=== PATIENT | male | born 2000 | race Caucasian/White ===

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

== ENCOUNTER 2019-03-20 21:05 | Emergency (ER) | payer MEDICAID, SELFPAY ==
[2019-03-20 21:06] VITALS: BP 146/105; PULSE 154; RESP 18; TEMP 35.5; O2SAT 100; BMI 22.9
[2019-03-20 21:15] VITALS: BP 146/77; PULSE 138; RESP 24; O2SAT 100
[2019-03-20] MEDS: Ziprasidone IM 20 MG/ML VIAL IM (21:17)
--- NOTE | 2019-03-20 21:20 | ED.RN ---
Pt yanking on restraints, screaming, spitting, banging head on side rails. PD at bedside. Spit mask in place. Seizure pads placed for safety. verbal de-escalation attempted.
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
[2019-03-20 21:59] LABS: Bacteria 0 SEEN /hpf (None Seen); Mucous, Urine 0 SEEN /hpf (<or=2+); Squamous Epithelial Cells - UA 0 SEEN /hpf (0-5)
[2019-03-20 22:06] VITALS: BP 136/83; PULSE 116; RESP 10; O2SAT 98
[2019-03-20 22:08] LABS: Color, Urine Yellow (Yellow); Glucose, Dipstick Normal (Normal); Ketone-Dipstick Negative (Negative); Leukocyte Esterase-Dipstick Negative /ul (Negative); Nitrite-Dipstick Negative (Negative); Occult Blood-Urine 25 /ul (Negative); Protein-Dipstick 30 mg/dl (Negative); Urine Bilirubin Dipstick Negative (Negative); Urine Clarity Clear (Clear); Urine Urobilinogen Normal (Normal)
[2019-03-20 22:10] LABS: AST(SGOT) 28 U/L (15-37); Alanine Aminotransfer ALT/SGPT 25 U/L (16-61); Albumin, Serum 4.7 g/dL (3.2-5.0); Alkaline Phosphatase 119 U/L (45-117); Anion Gap 10 (5-15); BUN 15 mg/dL (7-18); BUN/Creat Ratio 11.2 RATIO (10-20); Bilirubin, Direct 0.22 mg/dL (0.00-0.30); Calcium,Total 9.3 mg/dL (8.5-10.1); Chloride 111 mmol/L (98-107); Creatinine, Serum 1.34 mg/dL (0.70-1.30); EST Glomerular Filtration Rate 73 mL/min (>60); Est Glom Filt Rate - Afr Amer 88 mL/min (>60); Estimated Creatinine Clearance 91.02 ml/min; Globulin 3.2 g/dL (2.2-4.2); Glucose 179 mg/dL (74-106); Potassium 3.2 mmol/L (3.5-5.1); Protein, Total 7.9 g/dL (6.4-8.2); Sodium Level 142 mmol/L (136-145)
[2019-03-20 22:14] LABS: Alcohol, Blood (Medical)-Serum < 3.0 mg/dL
[2019-03-20 22:17] LABS: Absolute Neutrophil Count 8.8 X10^3/uL (2.0-7.7); Basophil# 0.01 X10^3/uL; Basophil% 0.1 % (0-1); Eosinophil# 0.11 X10^3/uL; Eosinophils% 0.9 % (0-5); Hematocrit 39.3 % (40-54); Lymphocyte % 15.9 % (19-41); Mean Corpuscular Volume 89.7 fL (80-94); Mean Platelet Vol. 10.1 fl (6.2-12.0); Monocyte# 1.14 X10^3/uL; Monocyte% 9.5 % (0-10); Neutrophil # 8.78 X10^3/uL (2.7-7.7); Neutrophil % 73.4 % (47-70); Platelet Count 228 K/mm3 (150-450); RBC Distribution Width CV 12.6 % (11.6-14.6); RBC Distribution Width SD 40.8 fl (35.1-43.9); Red Blood Count 4.38 M/mm3 (4.6-6.2)
--- NOTE | 2019-03-20 22:26 | ED.RN ---
Pt awake and talking sensible. Pt doesn't remember what drugs he took today, states he has smoked fake weed before and this happened admits to heroin a month ago. Last thing pt remembers is throwing furniture and fighting with patients. Pt still pulling on restraints and yelling let me out. Pt still spitting. Pt states he wants admired to a psych lopez for a long time Denies SI. Will continue to assess need for restraints.
[2019-03-20 22:28] LABS: Mean Corp Hgb Conc 35.6 g/gl (32-36)
[2019-03-20 22:29] LABS: POSITIVE COUNT NO; POSITIVE DIFFERENTIAL NO; POSITIVE MORPHOLOGY NO
[2019-03-20 22:30] LABS: Amphetamine Urine VISTA NEGATIVE (<1000 ng/mL); Barbiturate Urine VISTA NEGATIVE (< 200 ng/mL); Benzodiazepine Urine VISTA NEGATIVE (< 200 ng/mL); Cocaine Urine VISTA NEGATIVE (< 300 ng/mL); Ecstacy Urine VISTA NEGATIVE (< 500 ng/mL); Methadone Urine VISTA NEGATIVE (< 300 ng/mL); PCP Urine VISTA NEGATIVE (< 25 ng/mL); THC Urine VISTA NEGATIVE (< 50 ng/mL); Vista UDS pH Range 5
[2019-03-20 22:32] LABS: Red Blood Cells-Urine 0-5 SEEN /hpf (0-5); Transitional Epithelial - Ur 0-5 SEEN /hpf (0-5)
[2019-03-20 22:33] LABS: White Blood Cells 0-5 SEEN /hpf (0-5)
--- NOTE | 2019-03-20 22:37 | ED.RN ---
Pt admits to auditory hallucinations. States they tell him to not take his medications. Continues to deny SI. States something is wrong with me im messed up
--- NOTE | 2019-03-20 22:41 | ED.RN ---
Pt keeps saying he has demons inside him and and living in his house Now states he did smoked meth today.
--- NOTE | 2019-03-20 22:49 | ED.RN ---
Pt states he was trying to kill himself today, pt verbalizes wanting to . Pt states he snorted shit to kill myself Dr Felipe notified. Suicide precautions initiated.
--- NOTE | 2019-03-20 22:50 | ED.RN ---
Pt meets criteria for restraint removal. pt verbalizes wanting to cooperate. Pt explained the the mental health process. Crisis called. Restraints removed and patient taken off cardiac monitoring.
[2019-03-20 23:00] VITALS: RESP 16
--- NOTE | 2019-03-20 23:03 | ED.RN ---
I CALLED KRISTY FROM CRISIS AND NOTIFIED HER THAT THIS PT IS READY TO BE EVALUATED BY CRISIS. SHE STATED SHE IS ON HER WAY NOW.
[2019-03-21] VITALS (12 sets, daily range): BP systolic 110–129; BP diastolic 67–78; PULSE 70–91; RESP 13–18; TEMP 36.9; O2SAT 98–99
[2019-03-21] MEDS: Ondansetron ODT 4 MG Tablet PO (00:19)
--- NOTE | 2019-03-21 03:05 | ED.RN ---
PER FAMILY, PT IS OFF ALL MEDICATION.
== END 2019-03-21 12:15 ==
PROVIDERS: Emergency Provider Emergency Medicine; Family Provider Pediatrics; PCP Pediatrics
DX: F29 Unspecified psychosis not due to a substance or known physiological condition (principal); R45.851 Suicidal ideations; F20.9 Schizophrenia, unspecified; F31.9 Bipolar disorder, unspecified; F12.90 Cannabis use, unspecified, uncomplicated; Z78.1 Physical restraint status
CPT/HCPCS: 80048; 80076; 80307; 80320; 81001; 85025; 96372; 99285; G0480; J3486

== ENCOUNTER 2019-12-27 01:40 | Emergency (ER) | payer MEDICAID, SELFPAY ==
[2019-12-27] VITALS (9 sets, daily range): BP systolic 113–155; BP diastolic 67–101; PULSE 61–90; RESP 14–18; TEMP 36.6–36.9; O2SAT 97–99; BMI 21.9
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
[2019-12-27 02:09] LABS: Absolute Lymphocyte Count 3.43 X10^3/uL (0.83-4.51); Absolute Neutrophil Count 6.4 X10^3/uL (2.0-7.7); Basophil# 0.03 X10^3/uL; Basophil% 0.3 % (0-1); Eosinophil# 0.52 X10^3/uL; Eosinophils% 4.5 % (0-5); Hematocrit 40.1 % (40-54); Hemoglobin 14.6 g/dL (13.0-16.5); Lymphocyte # 3.43 X10^3/ul (4.0); Mean Corp Hgb Conc 36.4 g/dL (32-36); Mean Corpuscular Hgb 32.8 pg (27.0-32.0); Mean Corpuscular Volume 90.1 fL (80-94); Mean Platelet Vol. 9.9 fl (6.2-12.0); Monocyte# 1.08 X10^3/uL; Monocyte% 9.4 % (0-10); NRBC Flagged by Analyzer 0 % (0-5); Neutrophil # 6.35 X10^3/uL (2.7-7.7); Neutrophil % 55.5 % (47-70); Platelet Count 222 K/mm3 (150-450); RBC Distribution Width CV 11.9 % (11.6-14.6); RBC Distribution Width SD 38.2 fl (35.1-43.9); Red Blood Count 4.45 M/mm3 (4.6-6.2); White Blood Count 11.5 K/mm3 (4.4-11.0)
[2019-12-27 02:19] LABS: Anion Gap 8 (5-15); BUN 23 mg/dL (7-18); BUN/Creat Ratio 24.7 RATIO (10-20); Chloride 108 mmol/L (98-107); Creatinine, Serum 0.93 mg/dL (0.70-1.30); EST Glomerular Filtration Rate 110 mL/min (>60); Est Glom Filt Rate - Afr Amer 133 mL/min (>60); Estimated Creatinine Clearance 127.78 ml/min; Glucose 99 mg/dL (74-106); Potassium 3.7 mmol/L (3.5-5.1); Sodium Level 138 mmol/L (136-145)
[2019-12-27 02:36] LABS: Alcohol, Blood (Medical)-Serum < 3.0 mg/dL
[2019-12-27 02:39] LABS: Amphetamine Urine VISTA NEGATIVE (<1000 ng/mL); Barbiturate Urine VISTA NEGATIVE (< 200 ng/mL); Benzodiazepine Urine VISTA NEGATIVE (< 200 ng/mL); Cocaine Urine VISTA NEGATIVE (< 300 ng/mL); Ecstacy Urine VISTA NEGATIVE (< 500 ng/mL); Methadone Urine VISTA NEGATIVE (< 300 ng/mL); PCP Urine VISTA NEGATIVE (< 25 ng/mL); THC Urine VISTA POSITIVE (< 50 ng/mL); Vista UDS pH Range 5
--- NOTE | 2019-12-27 03:30 | ED.RN ---
PATIENT'S MOM CAME TO INTO CHECK ON THE PATIENT. SHE WAS ASKING A LOT OF QUESTIONS ABOUT HIS MARIJUANA USE AND HE WAS GETTING FRUSTRATED. SHE WAS VERY CONCERNED, AND WANTED TO KNOW WHERE HE WAS GOING AND WANTED HIM TO CALL BEFORE HE LEFT. SHE DIDN'T STAY LONG AND SHE TOOK HIS CAR TROY AND IPOD WITH HER.
== END 2019-12-27 15:24 ==
PROVIDERS: Emergency Provider Emergency Medicine; PCP Pediatrics
DX: R45.851 Suicidal ideations (principal); F17.200 Nicotine dependence, unspecified, uncomplicated; Z91.5 Personal history of self-harm
CPT/HCPCS: 80048; 80307; 80320; 85025; 99284; G0480

== ENCOUNTER 2020-02-18 00:14 | Emergency (ER) | payer MEDICAID, SELFPAY ==
[2019-12-27 01:42] VITALS: BMI 21.9
[2020-02-18 00:16] VITALS: BP 125/83; PULSE 64; RESP 15; TEMP 36.8; O2SAT 99; BMI 23.0
--- NOTE | 2020-02-18 00:24 | ED.VISSUMM ---
- ER Visit Summary Date of Service: 02/18/20 Chief Complaint: Hallucinations to kill himself History of Present Illness: The patient is a 19 M history of bipolar disorder. Currently on no medications. Patient was recently admitted to [facility] psychiatry at the end of December beginning of December for approximately a week. He states the last week he has had recurrent voices almost continuously telling him that he needs to end it. He denies any actual attempt. He denies any overdose or specific plan. He is concerned that he will not be able to stop the voices. Physical Examination: Young male no acute distress vital signs are stable and afebrile. H EENT exam unremarkable. No trauma. Neck nontender. No signs of trauma. Lungs clear to auscultation. Heart regular rhythm rate about 90 no murmur. Abdomen is soft nontender normal bowel sounds no peritoneal signs. Patient is moving all 4 extremities. No signs of trauma. No cutting. No track payne. Back nontender. Skin unremarkable. Neurologically is awake and alert with no focal motor deficits. Currently he is calm and cooperative. There is no smell of alcohol or signs of toxidrome. Test Results: [] Emergency Department Course and Treatment: Patient will undergo ED mental health labs. He is medically cleared. I have already spoken to crisis who is working on placement. Treatment Plan: Transfer to a psychiatric facility once acceptance is obtained. Disposition: Transfer to psychiatric facility Impression: Suicidal ideation with command hallucinations History of bipolar disorder This note was generated with [employer] dictation software. It may contain incorrect words, spelling, and punctuation that were not noted in review of the chart prior to signing ED Disposition - Plan for ED Patient: Referrals: Pal Menon MD [Primary Care Provider] -
[2020-02-18 00:39] LABS: Absolute Lymphocyte Count 4.19 X10^3/uL (0.83-4.51); Basophil# 0.04 X10^3/uL; Basophil% 0.4 % (0-1); Eosinophil# 0.26 X10^3/uL; Eosinophils% 2.8 % (0-5); Hematocrit 43.8 % (40-54); Hemoglobin 15.8 g/dL (13.0-16.5); Lymphocyte # 4.19 X10^3/ul (4.0); Lymphocyte % 45.9 % (19-41); Mean Corp Hgb Conc 36.1 g/dL (32-36); Mean Corpuscular Hgb 32.6 pg (27.0-32.0); Mean Corpuscular Volume 90.3 fL (80-94); Mean Platelet Vol. 9.9 fl (6.2-12.0); Monocyte# 0.67 X10^3/uL; Monocyte% 7.3 % (0-10); NRBC Flagged by Analyzer 0 % (0-5); Neutrophil # 3.95 X10^3/uL (2.7-7.7); Neutrophil % 43.4 % (47-70); Platelet Count 229 K/mm3 (150-450); RBC Distribution Width CV 11.6 % (11.6-14.6); RBC Distribution Width SD 37.5 fl (35.1-43.9); Red Blood Count 4.85 M/mm3 (4.6-6.2); White Blood Count 9.1 K/mm3 (4.4-11.0)
[2020-02-18 00:55] LABS: Anion Gap 6 (5-15); BUN 30 mg/dL (7-18); BUN/Creat Ratio 31.2 RATIO (10-20); Calcium,Total 9.5 mg/dL (8.5-10.1); Chloride 106 mmol/L (98-107); Creatinine, Serum 0.96 mg/dL (0.70-1.30); EST Glomerular Filtration Rate 105 mL/min (>60); Est Glom Filt Rate - Afr Amer 128 mL/min (>60); Estimated Creatinine Clearance 133.87 ml/min; Glucose 90 mg/dL (74-106); Potassium 3.8 mmol/L (3.5-5.1); Sodium Level 138 mmol/L (136-145)
[2020-02-18 01:15] VITALS: RESP 15
[2020-02-18 01:55] LABS: Amphetamine Urine VISTA NEGATIVE (<1000 ng/mL); Barbiturate Urine VISTA NEGATIVE (< 200 ng/mL); Benzodiazepine Urine VISTA NEGATIVE (< 200 ng/mL); Cocaine Urine VISTA NEGATIVE (< 300 ng/mL); Ecstacy Urine VISTA NEGATIVE (< 500 ng/mL); Methadone Urine VISTA NEGATIVE (< 300 ng/mL); PCP Urine VISTA NEGATIVE (< 25 ng/mL); THC Urine VISTA NEGATIVE (< 50 ng/mL); Vista UDS pH Range 5
[2020-02-18 02:01] LABS: Alcohol, Blood (Medical)-Serum < 3.0 mg/dL
--- NOTE | 2020-02-18 03:42 | ED.RN ---
[facility] WILL BE HERE TO TRANSPORT AROUND 0800
[2020-02-18 04:00] VITALS: BP 97/64; PULSE 59; RESP 15; TEMP 36.6; O2SAT 95
[2020-02-18 06:00] VITALS: RESP 15
[2020-02-18 06:02] VITALS: BP 97/64; PULSE 59; RESP 15; TEMP 36.6; O2SAT 95
[2020-02-18 07:00] VITALS: RESP 16
== END 2020-02-18 08:20 ==
LOC: ED 00:37
PROVIDERS: Emergency Provider Emergency Medicine; PCP Pediatrics
DX: R44.3 Hallucinations, unspecified (principal); F31.9 Bipolar disorder, unspecified; R45.851 Suicidal ideations
CPT/HCPCS: 80048; 80307; 80320; 85025; 99283; G0480

== ENCOUNTER 2020-11-16 21:47 | Emergency (ER) | payer MEDICAID, SELFPAY ==
[2020-11-16 21:49] VITALS: BP 141/91; PULSE 101; RESP 15; TEMP 36.8; O2SAT 97; BMI 20.9
--- NOTE | 2020-11-16 22:02 | EKG12_ITS ---
Test Reason : [facility] [place] Blood Pressure : / mmHG Vent. Rate : 088 BPM Atrial Rate : 088 BPM P-R Int : 174 ms QRS Dur : 100 ms QT Int : 372 ms P-R-T Axes : 064 085 060 degrees QTc Int : 450 ms Normal sinus rhythm Normal ECG Confirmed by MELVIN DELATORRE MD ([id number]), television news video editor FRANCIA DIEGO ([id number]) on 11/19/2020 6:58:35 AM Referred By: KELLY Confirmed By:MELVIN DELATORRE MD
[2020-11-16] MEDS: LORazepam 1 MG Tablet PO (22:27)
[2020-11-16] MEDS: Haloperidol 5 MG Tablet PO (22:28)
[2020-11-16 22:32] LABS: Absolute Neutrophil Count 7.2 X10^3/uL (2.0-7.7); Basophil# 0.05 X10^3/uL; Basophil% 0.5 % (0-1); Eosinophil# 0.22 X10^3/uL; Hematocrit 41.8 % (40-54); Hemoglobin 15.2 g/dL (13.0-16.5); Lymphocyte % 25.5 % (19-41); Mean Corp Hgb Conc 36.4 g/dL (32-36); Mean Corpuscular Hgb 32.2 pg (27.0-32.0); Mean Corpuscular Volume 88.6 fL (80-94); Mean Platelet Vol. 9.7 fl (6.2-12.0); Monocyte# 0.65 X10^3/uL; Monocyte% 5.9 % (0-10); NRBC Flagged by Analyzer 0 % (0-5); Neutrophil % 65.6 % (47-70); Platelet Count 242 K/mm3 (150-450); RBC Distribution Width CV 11.5 % (11.6-14.6); RBC Distribution Width SD 36.7 fl (35.1-43.9); Red Blood Count 4.72 M/mm3 (4.6-6.2)
[2020-11-16 22:46] LABS: Anion Gap 9 (5-15); BUN 17 mg/dL (7-18); BUN/Creat Ratio 21.5 RATIO (10-20); Chloride 106 mmol/L (98-107); Creatinine, Serum 0.79 mg/dL (0.70-1.30); EST Glomerular Filtration Rate 131 mL/min (>60); Est Glom Filt Rate - Afr Amer 159 mL/min (>60); Estimated Creatinine Clearance 147.09 ml/min; Glucose 72 mg/dL (74-106); Potassium 3.5 mmol/L (3.5-5.1); Sodium Level 138 mmol/L (136-145)
--- NOTE | 2020-11-16 22:47 | ED.DCSUM_ITS ---
History of Present Illness Chief Complaint: Mental Health Informant: Patient Onset: Days, Weeks Context: Gradual Onset Timing: Continuous Current Severity: Moderate Maximum Severity: Moderate Narrative: The patient is a 20-year-old male medical history significant for bipolar disorder who has been noncompliant with his medications. The patient presents with increasing auditory hallucinations. He states for the past week, he has had multiple voices that have been speaking to him. He states that he has begun to have thoughts of harming others. He states because of the voices, he has had thoughts of harming himself. He does not have any specific plan. He states that he has had attempt in the past. He states he walked into traffic, but states he was just trying to prove a point and did not feel like he was suicidal. Patient has not been taking medications for 3 months. Prior similar symptoms: Yes Recent Illness/Hospitalization: No Past Medical History - Allergies and Home Meds Allergies/Adverse Reactions: Allergies No Known Allergies Allergy (Verified 11/16/20 21:55) Primary Care Physician: Care Physician,No Primary [Primary Care Provider] - Prior records reviewed: Yes Past Medical History: - - Bipolar disorder Surgical History: noncontributory Smoking Status: Current every day smoker Review of Systems General: Denies: Chills, Fever, Sweats Eyes: Denies: Visual changes - bilaterally, Diplopia ENT: Denies: Rhinorrhea, Sore throat Cardiovascular: Denies: Chest pain, Palpitations Respiratory: Denies: Dyspnea, Cough, Dyspnea on exertion Gastrointestinal: Denies: Abdominal pain, Nausea, Vomiting, Diarrhea, Melena, Hematochezia Genitourinary: Denies: Dysuria, Hematuria, Frequency Musculoskeletal: Denies: Back pain, Extremity Pain Skin: Denies: Rash, Wounds Neurological: Denies: Headache, Weakness, Numbness Psych: Reports: Anxiety, Suicidal thoughts Physical Exam Vital Signs/Narrative: Vital Signs Temp Pulse Resp BP Pulse Ox 11/16/20 21:49 98.3 F 101 H 15 141/91 H 97 Inital Vital Signs reviewed: Yes General: Well nourished, Well developed, No Acute Distress Head: Normocephalic, Atraumatic Eyes: Perrl, EOMI ENT: Moist mucous membranes, No rhinorrhea Neck: Supple, Nontender Cardiovascular: Regular rate, Regular rhythm, No murmurs Respiratory: No distress, CTA bilaterally, Chest nontender Abdomen: Soft, Nontender, Nondistended, Normal bowel sounds Back: Nontender, Normal Inspection Extremities: Nontender, No edema Skin: Normal color, No rash Neurological: Alert, Oriented x3, Cranial nerves II-XII grossly intact, Normal Strength, Normal Sensation Psychological: Normal affect, Normal Mood Diagnostic/Tx/Re-eval Abnormal Lab Results 11/16/20 11/16/20 11/16/20 22:14 22:14 22:14 WBC 11.0 RBC 4.72 Hgb 15.2 Hct 41.8 MCV 88.6 MCH 32.2 H MCHC 36.4 H RDW Std Deviation 36.7 RDW Coeff of Darvin 11.5 L Plt Count 242 MPV 9.7 Immature Gran % (Auto) 0.500 Neut % (Auto) 65.6 Lymph % (Auto) 25.5 Alcorn % (Auto) 5.9 Eos % (Auto) 2.0 Baso % (Auto) 0.5 Absolute Neuts (auto) 7.2 Absolute Lymphs (auto) 2.80 Nucleated RBC % 0 Sodium 138 Potassium 3.5 Chloride 106 Carbon Dioxide 23.0 Anion Gap 9 BUN 17 Creatinine 0.79 Estim Creat Clear Calc 147.09 Est GFR (MDRD) Af Amer 159 Est GFR (MDRD) Non-Af 131 BUN/Creatinine Ratio 21.5 H Glucose 72 L Calcium 9.0 Urine Opiates Screen Urine Methadone Screen Ur Barbiturates Screen Ur Phencyclidine Scrn Ur Amphetamines Screen U Methamphetamin-MDMA U Benzodiazepines Scrn Urine Cocaine Screen U Cannabinoids Screen Ur Drug Screen Comment Ethyl Alcohol 15.0 11/16/20 22:14 WBC RBC Hgb Hct MCV MCH MCHC RDW Std Deviation RDW Coeff of Darvin Plt Count MPV Immature Gran % (Auto) Neut % (Auto) Lymph % (Auto) Alcorn % (Auto) Eos % (Auto) Baso % (Auto) Absolute Neuts (auto) Absolute Lymphs (auto) Nucleated RBC % Sodium Potassium Chloride Carbon Dioxide Anion Gap BUN Creatinine Estim Creat Clear Calc Est GFR (MDRD) Af Amer Est GFR (MDRD) Non-Af BUN/Creatinine Ratio Glucose Calcium Urine Opiates Screen NEGATIVE Urine Methadone Screen NEGATIVE Ur Barbiturates Screen NEGATIVE Ur Phencyclidine Scrn NEGATIVE Ur Amphetamines Screen NEGATIVE U Methamphetamin-MDMA NEGATIVE U Benzodiazepines Scrn NEGATIVE Urine Cocaine Screen NEGATIVE U Cannabinoids Screen NEGATIVE Ur Drug Screen Comment Ethyl Alcohol - Medical Decision Making The patient presents with increasing hallucinations, paranoid ideation, t ransient thoughts of self-harm, and thoughts of hurting others. He has been noncompliant with all of his medications. He was given oral Ativan and Haldol. Metabolic work-up was pursued. EKG was unremarkable. Labs are unremarkable. At this time, the patient is medically cleared. He will be evaluated by crisis counseling service. After 8-hour observation, the patient was evaluated by crisis when he was more awake and alert. At this point, he is not voicing any thoughts of self-harm or harm to others. He feels safe at home. We also discussed his care with his mother who thought that he did not need any inpatient psychiatric treatment at this time. At this point, the patient will be discharged with outpatient follow-up. Impression 1. Paranoia ED Disposition - Plan for ED Patient: Instructions: ED Bipolar Disorder Referrals: Counseling,Center [GROUP OF PHYSICIANS] -
[2020-11-16 22:59] LABS: Amphetamine Urine VISTA NEGATIVE (<1000 ng/mL); Barbiturate Urine VISTA NEGATIVE (< 200 ng/mL); Benzodiazepine Urine VISTA NEGATIVE (< 200 ng/mL); Cocaine Urine VISTA NEGATIVE (< 300 ng/mL); Ecstacy Urine VISTA NEGATIVE (< 500 ng/mL); Methadone Urine VISTA NEGATIVE (< 300 ng/mL); PCP Urine VISTA NEGATIVE (< 25 ng/mL); THC Urine VISTA NEGATIVE (< 50 ng/mL); Vista UDS pH Range 6
[2020-11-16 23:20] VITALS: RESP 16
--- NOTE | 2020-11-16 23:56 | NURSING ---
CALLED CRISIS AT [phone]
[2020-11-17 00:02] VITALS: RESP 16
[2020-11-17 01:00] VITALS: RESP 16
--- NOTE | 2020-11-17 01:05 | ED.RN ---
crisis called and requested to speak with pt. pt sleeping w/eyes closed and did not wake up. respirations even and unlabored. several attempts to awaken pt unsuccessful. crisis requested [facility] to contact them when pt wakes up.
[2020-11-17 01:20] VITALS: BP 109/54; PULSE 73; RESP 16; O2SAT 96
[2020-11-17 02:00] VITALS: RESP 16
[2020-11-17 03:00] VITALS: RESP 15
[2020-11-17 06:16] VITALS: BP 120/75; PULSE 81; RESP 17; O2SAT 99
== END 2020-11-17 06:17 | disposition home or self-care (01) ==
LOC: ED 23:19
PROVIDERS: Emergency Provider Emergency Medicine
DX: F22 Delusional disorders (principal); F31.9 Bipolar disorder, unspecified; Z91.14 Patient's other noncompliance with medication regimen; R45.851 Suicidal ideations; F41.9 Anxiety disorder, unspecified; F17.200 Nicotine dependence, unspecified, uncomplicated
CPT/HCPCS: 80048; 80307; 82077; 85025; 87426; 93005; 99284

== ENCOUNTER 2021-01-15 22:06 | Emergency (ER) | payer MEDICAID, SELFPAY ==
[2021-01-15 22:07] VITALS: BP 148/80; PULSE 92; RESP 18; TEMP 35.9; O2SAT 98; BMI 23.0
--- NOTE | 2021-01-15 22:19 | EKG12_ITS ---
Test Reason : [facility] [place] Blood Pressure : / mmHG Vent. Rate : 090 BPM Atrial Rate : 090 BPM P-R Int : 170 ms QRS Dur : 096 ms QT Int : 340 ms P-R-T Axes : 059 083 057 degrees QTc Int : 415 ms Normal sinus rhythm with sinus arrhythmia Normal ECG Confirmed by JUAN RAMON GREEN, MELVIN ([id number]), purchasing expeditor DESIRE PHILIPPE ([id number]) on 01/19/2021 10:30:16 AM Referred By: CL Confirmed By:MELVIN DELATORRE MD
--- NOTE | 2021-01-15 22:24 | ED.VIS.GEN ---
History of Present Illness Chief Complaint: Suicidal Informant: Patient Onset: Days Context: Gradual Onset Timing: Intermittent Current Severity: Moderate Maximum Severity: Severe Narrative: The patient is a 20-year-old male with history of bipolar disorder who presents to the emergency department requesting psychiatric evaluation. The patient states that he is noncompliant with his medications. He states for the past month, he has been having increasing auditory hallucinations. He states there is multiple voices that are talking to him. He states he stopped taking his meds because they do not work. He states the other night, he did have a dream about killing himself, but states he has no plan of harming himself. He does admit to being increasingly paranoid. He states that he feels like people are out to get him. He states he does not feel like he is safe. Prior similar symptoms: Yes Recent Illness/Hospitalization: No Past Medical History - Allergies and Home Meds Allergies/Adverse Reactions: Allergies No Known Allergies Allergy (Verified 01/15/21 22:11) Primary Care Physician: Care Physician,No Primary [NON-STAFF] - Prior records reviewed: Yes Past Medical History: - - Bipolar disorder Surgical History: noncontributory Smoking Status: Current every day smoker Review of Systems General: Denies: Chills, Fever, Sweats Eyes: Denies: Visual changes - bilaterally, Diplopia ENT: Denies: Rhinorrhea, Sore throat Cardiovascular: Denies: Chest pain, Palpitations Respiratory: Denies: Dyspnea, Cough, Dyspnea on exertion Gastrointestinal: Denies: Abdominal pain, Nausea, Vomiting, Diarrhea, Melena, Hematochezia Genitourinary: Denies: Dysuria, Hematuria, Frequency Musculoskeletal: Denies: Back pain, Extremity Pain Skin: Denies: Rash, Wounds Neurological: Denies: Headache, Weakness, Numbness Psych: Reports: Depression, Anxiety Physical Exam Vital Signs/Narrative: Vital Signs Temp Pulse Resp BP Pulse Ox 01/15/21 22:07 96.7 F L 92 18 148/80 H 98 Inital Vital Signs reviewed: Yes General: Well nourished, Well developed, No Acute Distress Head: Normocephalic, Atraumatic Eyes: Perrl, EOMI ENT: Moist mucous membranes, No rhinorrhea Neck: Supple, Nontender Cardiovascular: Regular rate, Regular rhythm, No murmurs Respiratory: No distress, CTA bilaterally, Chest nontender Abdomen: Soft, Nontender, Nondistended, Normal bowel sounds Back: Nontender, Normal Inspection Extremities: Nontender, No edema Skin: Normal color, No rash Neurological: Alert, Oriented x3, Cranial nerves II-XII grossly intact, Normal Strength, Normal Sensation Psychological: Normal affect, Normal Mood Diagnostic/Tx/Re-eval - Medical Decision Making The patient presents with increasing paranoia. He had a dream about suicide, but states is not actively suicidal. He does feel unsafe. Patient will undergo metabolic work-up and be evaluated by crisis. Impression 1. Bipolar disorder 2. Paranoia ED Disposition - Plan for ED Patient: Referrals: Care Physician,No Primary [NON-STAFF] -
[2021-01-15 22:54] LABS: Amphetamine Urine VISTA NEGATIVE (<1000 ng/mL); Barbiturate Urine VISTA NEGATIVE (< 200 ng/mL); Benzodiazepine Urine VISTA NEGATIVE (< 200 ng/mL); Cocaine Urine VISTA NEGATIVE (< 300 ng/mL); Ecstacy Urine VISTA NEGATIVE (< 500 ng/mL); Methadone Urine VISTA NEGATIVE (< 300 ng/mL); PCP Urine VISTA NEGATIVE (< 25 ng/mL); THC Urine VISTA POSITIVE (< 50 ng/mL); Vista UDS pH Range 5
[2021-01-15 23:07] VITALS: RESP 12
[2021-01-15 23:28] LABS: Absolute Lymphocyte Count 1.72 X10^3/uL (0.83-4.51); Absolute Neutrophil Count 8.6 X10^3/uL (2.0-7.7); Basophil# 0.02 X10^3/uL; Basophil% 0.2 % (0-1); Eosinophil# 0.04 X10^3/uL; Eosinophils% 0.3 % (0-5); Hematocrit 42.3 % (40-54); Lymphocyte # 1.72 X10^3/ul (4.0); Lymphocyte % 14.9 % (19-41); Mean Corp Hgb Conc 35.5 g/dL (32-36); Mean Corpuscular Volume 93.2 fL (80-94); Mean Platelet Vol. 9.6 fl (6.2-12.0); Monocyte# 0.95 X10^3/uL; Monocyte% 8.2 % (0-10); NRBC Flagged by Analyzer 0 % (0-5); Neutrophil # 8.64 X10^3/uL (2.7-7.7); Neutrophil % 74.8 % (47-70); Platelet Count 266 K/mm3 (150-450); RBC Distribution Width CV 11.9 % (11.6-14.6); RBC Distribution Width SD 40.9 fl (35.1-43.9); Red Blood Count 4.54 M/mm3 (4.6-6.2); White Blood Count 11.6 K/mm3 (4.4-11.0)
[2021-01-15 23:41] LABS: ALB/GLOB Ratio 1.4 RATIO (0.9-2.4); AST(SGOT) 24 U/L (15-37); Alanine Aminotransfer ALT/SGPT 32 U/L (16-61); Albumin, Serum 4.8 g/dL (3.2-5.0); Alkaline Phosphatase 152 U/L (45-117); Anion Gap 4 (5-15); BUN 13 mg/dL (7-18); BUN/Creat Ratio 14.1 RATIO (10-20); Calcium,Total 9.2 mg/dL (8.5-10.1); Chloride 106 mmol/L (98-107); Creatinine, Serum 0.92 mg/dL (0.70-1.30); EST Glomerular Filtration Rate 109 mL/min (>60); Est Glom Filt Rate - Afr Amer 132 mL/min (>60); Estimated Creatinine Clearance 138.53 ml/min; Globulin 3.5 g/dL (2.2-4.2); Glucose 96 mg/dL (74-106); Potassium 4.1 mmol/L (3.5-5.1); Protein, Total 8.3 g/dL (6.4-8.2); Sodium Level 140 mmol/L (136-145)
--- NOTE | 2021-01-15 23:58 | ED.RN ---
REPORT FAXED AND CRISIS AWARE OF THIS REFERRAL
[2021-01-16] VITALS (8 sets, daily range): BP systolic 124–136; BP diastolic 56–60; PULSE 80–85; RESP 12–18; O2SAT 97
--- NOTE | 2021-01-16 00:51 | ED.RN ---
CRISIS CALLED AND SPEAKING WITH PATIENT AT THIS TIME
[2021-01-16] MEDS: OLANZapine 10 MG Tablet PO (02:06)
--- NOTE | 2021-01-16 06:46 | ED.RN ---
patient pending acceptance at [facility]
--- NOTE | 2021-01-16 11:01 | CM.ED ---
SOCIAL WORK Call to Lisset with Crisis. Per Lisset, patient is still pending at [facility]. Lisset reports will call with any updates. Ronaldo Escalante, SUPERVISOR AREA, RETREAD BUILDER
--- NOTE | 2021-01-16 13:19 | CM.ED ---
SOCIAL WORK Updated by Lisset with Crisis. Patient has been accepted to [facility] by Dr. Cole to the Intensive Treatment Unit. Nurse to call report to [phone] option 1. [place] faxed to [facility] per request. Davis to set up transport. Plan: [facility] Ronaldo Escalante MSW, DIRECTOR COMMUNICATIONS
== END 2021-01-16 15:51 ==
PROVIDERS: Emergency Provider Emergency Medicine; PCP Pediatrics
DX: F31.9 Bipolar disorder, unspecified (principal); F22 Delusional disorders; F41.9 Anxiety disorder, unspecified; Z91.14 Patient's other noncompliance with medication regimen; F17.200 Nicotine dependence, unspecified, uncomplicated; Z79.899 Other long term (current) drug therapy
CPT/HCPCS: 80053; 80307; 82077; 85025; 87426; 93005; 99285

== ENCOUNTER 2021-04-02 09:50 | Emergency (ER) | payer MEDICAID, SELFPAY ==
[2021-04-02] VITALS (12 sets, daily range): BP systolic 105–134; BP diastolic 64–77; PULSE 14–104; RESP 15–76; TEMP 36.4–37.3; O2SAT 97–100; BMI 24.4
--- NOTE | 2021-04-02 09:55 | EKG12_ITS ---
Test Reason : Blood Pressure : / mmHG Vent. Rate : 088 BPM Atrial Rate : 088 BPM P-R Int : 168 ms QRS Dur : 112 ms QT Int : 394 ms P-R-T Axes : 062 079 050 degrees QTc Int : 476 ms Normal sinus rhythm Normal ECG Confirmed by KENNETH GREEN, ANNA MARIE ([id number]), editor producer DESIRE PHILIPPE ([id number]) on 04/06/2021 9:45:40 AM Referred By: DARIO Confirmed By:ANNA MARIE COOPER MD
[2021-04-02] MEDS: Ziprasidone IM 20 MG/ML VIAL IM (10:09)
--- NOTE | 2021-04-02 10:10 | EX.ED.VIS.PS ---
HPI HPI - Psych History of Present Illness Chief Complaint: Mental Health Informant: patient and police/aquatics group fitness instructor Narrative Narrative: 20-year-old male presents to the emergency department under pink slip for psychiatric evaluation. He has a history of bipolar disorder and paranoid schizophrenia. He states that he is not currently taking his medication. He states he is hearing voices. He was arrested yesterday after attempting to punch people. He was released from intermediate under pink slip. Patient currently is screaming at police officers in the room. He is using extensive racial slurs. He is running from the room jumping on the bed away from the police. [facility] Medical History (Updated 04/02/21 @ 10:[address] Ajay Snider, ) Bipolar disorder Paranoid schizophrenia Home Medications olanzapine 1 tab PO QHS 01/16/21 [History Last Taken Unknown] Allergy/AdvReac Type Severity Reaction Status Date / Time No Known Allergies Allergy Verified 01/15/21 22:11 unable to obtain Social History (Updated 04/02/21 @ 12:[address] Ajay Snider, ) Smoking Status: Current every day smoker tobacco type: cigarettes substance use type: does not use ROS ROS ED Review of Systems ROS Unobtainable: due to mental condition EXAM Physical Exam Const Vital Signs: 04/02/21 09:50 04/02/21 12:20 04/02/21 12:26 Temperature 97.6 F L 97.8 F Temperature Source Temporal Temporal Pulse Rate 78 Respiratory Rate 16 16 Blood Pressure 105/64 Blood Pressure Mean 77 Pulse Ox 97 Oxygen Delivery Method Room Air Positive well nourished and well developed General Appearance ED: well developed HEENT Reports normocephalic, head/scalp atraumatic and moist mucous membranes Eyes PERRL and EOMs intact bilaterally Neck no lymphadenopathy, supple and no JVD Resp normal respiratory effort and clear to auscultation bilaterally Cardio regular rate, regular rhythm and no murmurs GI normal to inspection, nondistended, normoactive bowel sounds and non-tender Palpation: soft Back/Spine no CVA tenderness and normal ROM Extremity normal to inspection General Extremety ED: Negative for edema General Extremity: Negative for edema Neuro oriented x3 and CN's II-XII intact bilaterally Sensorium / Orientation: alert Motor Exam: strength 5/5 throughout Psych Psych Narrative: Patient is aggressive and demonstrating violent behavior. He is not redirectable. He does admit to hearing voices. He demonstrates nonlinear thinking. Mood & Affect: Negative for depressed or tearful Skin no rashes or lesions noted and no wounds MDM MDM MDM Narrative Medical decision making narrative: Patient was physically restrained using four-point leather restraints and chemically sedated with Geodon. Psychiatric clearance labs were obtained. Potassium 3.1. Given the patient's sedated state I am not able to replace it at this time. His urinalysis is negative. Tox screen is negative as well. Patient is medically cleared for psychiatric evaluation. We will work with our case management to get him admitted to psychiatric facility under pink slip. Lab Data Labs: Laboratory Results - last 24 hr 04/02/21 04/02/21 04/02/21 11:55 11:55 11:55 WBC 9.5 RBC 4.23 L Hgb 13.7 Hct 36.8 L MCV 87.0 MCH 32.4 H MCHC 37.2 H RDW Std Deviation 37.0 RDW Coeff of Darvin 11.7 Plt Count 245 MPV 9.6 Immature Gran % (Auto) 0.400 Neut % (Auto) 67.0 Lymph % (Auto) 16.9 L Hooker % (Auto) 15.3 H Eos % (Auto) 0.2 Baso % (Auto) 0.2 Absolute Neuts (auto) 6.4 Absolute Lymphs (auto) 1.61 Nucleated RBC % 0 Sodium 136 Potassium 3.1 L Chloride 100 Carbon Dioxide 28.0 Anion Gap 8 BUN 8 Creatinine 0.81 Estim Creat Clear Calc 158.34 Est GFR (MDRD) Af Amer 153 Est GFR (MDRD) Non-Af 127 BUN/Creatinine Ratio 9.9 L Glucose 98 Calcium 9.0 Total Bilirubin 3.00 H AST 35 ALT 21 Alkaline Phosphatase 122 H Total Protein 7.8 Albumin 4.6 Globulin 3.2 Albumin/Globulin Ratio 1.4 Urine Color Urine Clarity Urine pH Ur Specific Bradley Urine Protein Urine Glucose (UA) Urine Ketones Urine Occult Blood Urine Nitrite Urine Bilirubin Urine Urobilinogen Ur Leukocyte Esterase Urine Opiates Screen Urine Methadone Screen Ur Barbiturates Screen Ur Phencyclidine Scrn Ur Amphetamines Screen U Methamphetamin-MDMA U Benzodiazepines Scrn Urine Cocaine Screen U Cannabinoids Screen Ur Drug Screen Comment Ethyl Alcohol 5.0 04/02/21 04/02/21 11:55 11:55 WBC RBC Hgb Hct MCV MCH MCHC RDW Std Deviation RDW Coeff of Darvin Plt Count MPV Immature Gran % (Auto) Neut % (Auto) Lymph % (Auto) Hooker % (Auto) Eos % (Auto) Baso % (Auto) Absolute Neuts (auto) Absolute Lymphs (auto) Nucleated RBC % Sodium Potassium Chloride Carbon Dioxide Anion Gap BUN Creatinine Estim Creat Clear Calc Est GFR (MDRD) Af Amer Est GFR (MDRD) Non-Af BUN/Creatinine Ratio Glucose Calcium Total Bilirubin AST ALT Alkaline Phosphatase Total Protein Albumin Globulin Albumin/Globulin Ratio Urine Color Yellow Urine Clarity Clear Urine pH 6.5 Ur Specific Bradley 1.010 Urine Protein Negative Urine Glucose (UA) Normal Urine Ketones 5 H Urine Occult Blood 10 H Urine Nitrite Negative Urine Bilirubin Negative Urine Urobilinogen Normal Ur Leukocyte Esterase Negative Urine Opiates Screen NEGATIVE Urine Methadone Screen NEGATIVE Ur Barbiturates Screen NEGATIVE Ur Phencyclidine Scrn NEGATIVE Ur Amphetamines Screen NEGATIVE U Methamphetamin-MDMA NEGATIVE U Benzodiazepines Scrn NEGATIVE Urine Cocaine Screen NEGATIVE U Cannabinoids Screen NEGATIVE Ur Drug Screen Comment Ethyl Alcohol EKG Initial EKG: Attestation: I personally reviewed and interpreted this EKG as follows: Comments: EKG demonstrates a normal sinus rhythm at a rate of 88. Normal intervals. Discharge Plan Triage Chief Complaint: Mental Health ED Provider: Ajay Snider Dx/Rx/DC Orders Clinical Impression: Paranoid schizophrenia Prescriptions: No Action olanzapine 10 MG tablet 1 tab PO QHS RF: 0 Primary Care Provider: Pal Menon Referrals: Pal Menon MD [Primary Care Provider] -
--- NOTE | 2021-04-02 10:14 | CM.ED ---
Social Work Note Referral Source: [facility] Referral Reason: To be evaluated Maria Fernanda from [facility] called and said that patient is being brought into the hospital as he was at halfway and playing with his spit and stating he was Valdez. Maria Fernanda said that patient is not going back to [facility] as he is released from halfway. Plan: To be determined Maria Fernanda SEGUNDO
--- NOTE | 2021-04-02 10:14 | ED.RN ---
PT WAS VERBALLY AND PHYSICALLY AGGRESSIVE TOWARDS SO AND STAFF UPON ARRIVAL. VERBAL DE-ESCALATION WAS NOT EFFECTIVE. PT WAS PLACED IN HARD RESTRAINTS TO MAINTAIN SAFETY AND MEDICATED. WATER WAS GIVEN PER PT REQUEST, LIMB AND CIRCULATION CHECKS DONE. WILL CONTINUE TO MONITOR THE PT.
[2021-04-02] MEDS: LORazepam 2 MG/ML Syringe IM (10:33)
[2021-04-02] MEDS: DiphenhydrAMINE 50 MG/ML Syringe IM (10:33)
--- NOTE | 2021-04-02 10:33 | ED.RN ---
PT IS RESISTANT TO CARE AND SPITTING AT STAFF AND ON THE FLOOR. PT IS SCREAMING CONTINUOUSLY. PT MEDICATED PER MD ORDER AND VERIFIED WITH AVEL OLIVER. WILL CONTINUE TO MONITOR THE PT. LIMB CHECKS AND CIRCULATION PREFORMED.
[2021-04-02 12:02] LABS: Absolute Lymphocyte Count 1.61 X10^3/uL (0.83-4.51); Absolute Neutrophil Count 6.4 X10^3/uL (2.0-7.7); Basophil# 0.02 X10^3/uL; Basophil% 0.2 % (0-1); Eosinophil# 0.02 X10^3/uL; Eosinophils% 0.2 % (0-5); Hematocrit 36.8 % (40-54); Hemoglobin 13.7 g/dL (13.0-16.5); Lymphocyte # 1.61 X10^3/ul (0.83-4.51); Lymphocyte % 16.9 % (19-41); Mean Corp Hgb Conc 37.2 g/dL (32-36); Mean Corpuscular Hgb 32.4 pg (27.0-32.0); Mean Platelet Vol. 9.6 fl (6.2-12.0); Monocyte# 1.46 X10^3/uL; Monocyte% 15.3 % (0-10); NRBC Flagged by Analyzer 0 % (0-5); Neutrophil # 6.39 X10^3/uL (2.7-7.7); Platelet Count 245 K/mm3 (150-450); RBC Distribution Width CV 11.7 % (11.6-14.6); Red Blood Count 4.23 M/mm3 (4.6-6.2); White Blood Count 9.5 K/mm3 (4.4-11.0)
[2021-04-02 12:16] LABS: Amphetamine Urine VISTA NEGATIVE (<1000 ng/mL); Barbiturate Urine VISTA NEGATIVE (< 200 ng/mL); Benzodiazepine Urine VISTA NEGATIVE (< 200 ng/mL); Cocaine Urine VISTA NEGATIVE (< 300 ng/mL); Ecstacy Urine VISTA NEGATIVE (< 500 ng/mL); Methadone Urine VISTA NEGATIVE (< 300 ng/mL); PCP Urine VISTA NEGATIVE (< 25 ng/mL); THC Urine VISTA NEGATIVE (< 50 ng/mL); Vista UDS pH Range 6
[2021-04-02 12:21] LABS: ALB/GLOB Ratio 1.4 RATIO (0.9-2.4); AST(SGOT) 35 U/L (15-37); Alanine Aminotransfer ALT/SGPT 21 U/L (16-61); Albumin, Serum 4.6 g/dL (3.2-5.0); Alkaline Phosphatase 122 U/L (45-117); Anion Gap 8 (5-15); BUN 8 mg/dL (7-18); BUN/Creat Ratio 9.9 RATIO (10-20); Chloride 100 mmol/L (98-107); Creatinine, Serum 0.81 mg/dL (0.70-1.30); EST Glomerular Filtration Rate 127 mL/min (>60); Est Glom Filt Rate - Afr Amer 153 mL/min (>60); Estimated Creatinine Clearance 158.34 ml/min; Globulin 3.2 g/dL (2.2-4.2); Glucose 98 mg/dL (74-106); Potassium 3.1 mmol/L (3.5-5.1); Protein, Total 7.8 g/dL (6.4-8.2); Sodium Level 136 mmol/L (136-145)
[2021-04-02 12:40] LABS: Bacteria 0 SEEN /hpf (None Seen); Mucous, Urine 0 SEEN /hpf (<or=2+); Squamous Epithelial Cells - UA 0 SEEN /hpf (0-5); White Blood Cells 0 SEEN /hpf (0-5)
[2021-04-02 12:46] LABS: Color, Urine Yellow (Yellow); Glucose, Dipstick Normal (Normal); Ketone-Dipstick 5 mg/dl (Negative); Leukocyte Esterase-Dipstick Negative /ul (Negative); Nitrite-Dipstick Negative (Negative); Occult Blood-Urine 10 /ul (Negative); Protein-Dipstick Negative (Negative); Urine Bilirubin Dipstick Negative (Negative); Urine Clarity Clear (Clear); Urine Urobilinogen Normal (Normal); Urine pH 6.5 (5.0 - 8.0)
[2021-04-02 12:52] LABS: Red Blood Cells-Urine 0-5 SEEN /hpf (0-5)
--- NOTE | 2021-04-02 14:21 | ED.RN ---
Patient asked that I call his mom to give and update. I called and talked to the father who is updated and aware patient is talking and working on plaecment for the patient.
--- NOTE | 2021-04-02 14:48 | CM.ED ---
SOCIAL WORK ASSESSMENT Referral Source: Police and [facility] Reason for Consult: [facility] staff , Maria Fernanda, called and stated patient was released from long term this morning as he was ?playing with his spit? and referring to himself as Valdez. Patient was discharged from long term this morning. Chief Compliant: saw boss Kyara noted that patient was calling her ?whore? and that she is ?going to hell. Patient reports that staff are all ?going to hell?. Patient called staff various racial slurs. Hospital Resource office said that patient had been screaming at staff and yelling. HRO noted that patient had garbled speech, impulsivity and was ineffective in being managed without medication and mechanical restraints. Patient is linked with [facility], per HRO, and has a mattress spring encaser, Rodger and Counselor, Mica. Patient has previously been at [facility] for psychiatry. Mother told HRO that patient lives in an in-law suite. Mother said that she noted a 3-day decline on patients? psychiatric behavior and patient has not been medication compliant. Patient was in long term overnight as he stole a monster drink and when confronted threatened staff. Per RN note at 10:33am on this date patient was resistant to care and spitting at staff and on the floor. He was screaming continually. Marital/Social History: Single Living Situation: Patient resides in an ?in law suite? at his parents? house in [place] Support/Resources: Patient?s support is his support is his mom (Grace) and staff at [facility]. Patient?s mother said that patient?s psychiatrist is Dr. Peña, and CM is Rodger and Mica is his Counselor. History: None Education and Employment History: Patient graduated from high school. No learning issues. Patient attended college for 1 month and then per Grace (mom) ?this kicked in?. Mental Health Treatment/History: Patient?s mom, Grace, reports that patient has been hospitalized 9 times to different inpatient psych facilities. Most recent psych facility was [facility] for [facility]. ([facility]) Patient initially diagnosed with bipolar then schizophrenia. Patient?s mother stated patient has stated he has bipolar however, now he believes that mental health is a ?farse?. Mother said that patient has not been taking his meds since January. He reports no med compliance due to ?making him sleepy?, ?no need for it? and ?it?s messing with his brain. Triggers/Stressors: Patient?s mother reports that the initial trigger was ?marijuana?. Mother said that a current trigger is not sleeping and being worried that someone is outside trying to get him (which has been present for 1 month per mother) Coping Skills: Mother said that she does not know what coping skills patient used as he doesn?t like music, doesn?t read and doesn?t do puzzles or crafts. Abuse Issues: Denied by mother Substance Abuse History: Mother reports no current substance use. She reports patient discontinued marijuana use in January. However, later mother said that patient had a ?beer yesterday? but she stated that she did not feel like it was an issue. Tox screen negative . Risk to Self/Others: Suicidal- Mother reports no suicidal statements from patient Homicidal-Mother reports no homicidal statements Violence- Mother reports no violence or threats to self, others or things. Mental Status Exam: Orientation-Per MD note patient is oriented x3. Memory: Unknown Appearance/General Behavior: Disheveled Mood/Affect: Agitated and aggressive Communication Pattern: Rapid and rambling Thought Process: Nonlinear thinking General Intellectual Functioning: Judgement: Poor Insight: Poor Assessment Mother reports that she feels patient has ?some depression?. She reports patient has just recently cleaned up his one room in his area of the home. Mother said that patient does not do dishes or laundry. Mother said that patient is the oldest of 6 and ?he has a hard time dealing with them? referencing his siblings. Mother reports some anger and aggressive behavior. Mother said that within the last month patient is difficult to be around as he is ?picking on people and what they eat?. Mother reports that patient has been spitting, clearing his throat and having an obsession about having enough air and insisting that the window be open. Mother reports that patient reported 9 months ago that he was having psychotic [id number]. Mother said that patient has not [id number] current psychosis however she has witnessed patient?s lips moving and it appears that patient is talking to himself. Mother said that patient has not sleep and reported that 2 days ago he was up at midnight and stated that someone was outside his window and family spoke to him and attempted to calm him down. Mother said that patient left the house and sat on the grass at the [facility] [place] and then woke parents up at 6:00am. Mother said that patient had been on a KETO diet however patient has recently only been eating bread, butter and pop. Mother reports patient has reported he feels he ?shouldn?t smoke weed? anymore. (Of note, tox screen is negative) This telegraphic typewriter installer was unable to interview patient at this time due to the psychiatric medication regiment he was given to ensure his safety. Assessment completed using history, medical and hospital staff reports and family reports. Vp Outcomes stated patient did not voice suicidal statements but was presenting with psychosis on admission. Plan: Inpatient psychiatric hospitalization for medication management and safety of patient. Maria Fernanda SALCEDO
--- NOTE | 2021-04-02 14:55 | CM.ED ---
Addendum entered by Maria Fernanda Muse 04/02/21 15:02: Per mother, patient is his own guardian. SW contacted [facility]. They wanted to wait to assess in 1 hour about patient's condition and reevaluate. NATE called [facility]. They need patient out of restraints prior to ambulance transport per Jane. NATE spoke to Anne who stated that patient is able to have medication/chemical restraints on transport. NATE faxed referral to [facility] for review. blood bank technician and MD updated. Original Note: NATE Note: NATE spoke to patient's motherGrace to get history. Patient's mother said that she is in agreement with placement for patient in [facility]. NATE called patient's mother. Patient is he
--- NOTE | 2021-04-02 17:21 | ED.RN ---
Patient is out of restraints and compliant. He is aware a tray of food will be brought in for him
--- NOTE | 2021-04-02 18:14 | CM.ED ---
SW Note SW was advised that patient continues to be out of 4 point restraints at this time. He was discharged from 4 point restraints at 17:21. Patient was administered Geodon at 10:09 am and Benedryl at 10:33 and ATivan at 10:33am. Patient was observed at 18:00 to be sitting up. He interacted with his father in the room. Patient is watchful but calm. Plan: Inpatient psych Maria Fernanda SALCEDO
--- NOTE | 2021-04-02 18:53 | CM.ED ---
NATE Note NATE called [facility] and updated them on how patient is doing currently. They requested we wait 1/2 hour and reassess him again. Luis requested a list of medications given today and how he is functioning in 30 minutes. NATE noted that patient has been cooperative and eating. NATE wrote note for [facility] updating them on how patient is currently doing. provided addendum to note on patient's current status. NATE faxed this to [facility]. [facility] intake staff called and advised they need pink slip and covid results. NATE faxed pink slip and covid results to them for review. NATE met with patient's father, Ajay. Ajay said that he is aware of how the process for inpatient psych goes. He advised that patient needs hospitalization. Ajay said that patient did best when on KETO diet. Ajay said that previously patient's psychotic episodes were result of drug (marijuana) use. NATE explained that we made referral to [facility] and are in the process of hearing back from them. Ajay verbalized understanding. He asked to be taken out of the Emergency Room the back way as opposed to walking by patient's room. NATE escorted him out of the unit. Ajay requested to speak to Hospital Resource Officer (HRO) Frederick Abel. NATE updated Frederick Abel. Plan: Inpatient psych hospitalization
--- NOTE | 2021-04-02 20:36 | CM.ED ---
Addendum entered by Maria Fernanda Muse 04/02/21 20:44: NATE called [facility]. Advised patient will leave in 30 minutes. This information was left in voice mail message. Maria Fernanda SEGUNDO Original Note: NATE note NATE called [facility] they requested COVID screen. NATE called Grace,patient's mother and got information about if patient was exposed to COVID. Grace said that no one in their house had COVID. NATE faxed COVID screen to [facility]. NATE and HRO Frederick Abel met with patient. Patient is aware of going to [facility]. He verbalized understanding. He was given sandwich and drink. SW offered patient cookies and he said do they have marijuana in them? and SW said no. Patient was noted to be laughing inappropriately. NATE received call from Amalia at [facility]. She advised patient is going to Room 302A and the admitting MD is Hiram. The RN to RN is [phone]. NATE updated software developer manager in ED for transport, calender feeder and RN. MD completed transport paperwork and pink slip. ED software developer manager reports transport will be here in 30 minutes. NATE called Grace, patient's mother. She was updated about patient discharge time. Patient's had been given handout on [facility] with phone number and address. NATE asked if Grace had any questions and she said no. Grace appreciative. Grace reported that patient's inappropriate laughing has been occurring for awhile and is not new. Plan: [facility] [address] Maria Fernanda SEGUNDO
--- NOTE | 2021-04-02 20:48 | ED.RN ---
ETA for squad is 20 minutes. When I called [facility], they said the nurse is off the unit and asked me to call back in 20 minutes.
== END 2021-04-02 21:00 ==
PROVIDERS: Emergency Provider Emergency Medicine; PCP Pediatrics
DX: F20.0 Paranoid schizophrenia (principal); F31.9 Bipolar disorder, unspecified; F17.210 Nicotine dependence, cigarettes, uncomplicated; Z78.1 Physical restraint status; Z79.899 Other long term (current) drug therapy
CPT/HCPCS: 80053; 80307; 81001; 82077; 85025; 87426; 93005; 96372; 99285; J3486

== ENCOUNTER 2021-04-11 18:55 | Emergency (ER) | payer MEDICAID, SELFPAY ==
[2021-04-02 09:50] VITALS: BMI 24.4
[2021-04-11 18:57] VITALS: BP 126/92; PULSE 110; RESP 18; TEMP 37.4; O2SAT 95; BMI 24.4
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
--- NOTE | 2021-04-11 19:23 | RAD_ITS ---
STUDY: X-RAY - UNILATERAL RIBS ( LEFT ) WITH CHEST REASON FOR EXAM: Male, 20 years old. injury TECHNIQUE - RIBS: 4 view(s) of the ribs. TECHNIQUE - CHEST: Single AP portable view of the chest a. COMPARISON: None. FINDINGS - RIBS: Normal visualized ribs without a demonstrated fracture. FINDINGS - CHEST: The lungs are clear and expanded. There is no demonstrated pleural abnormality. Normal size heart. Normal mediastinum and km. Normal visualized pulmonary arteries. Normal visualized aortic arch and descending thoracic aorta. Normal visualized thoracic spine. Normal visualized ribs, clavicles, and shoulders. There is no demonstrated abnormality of the visualized soft tissue structures of the upper abdomen. RAD/Ribs Uni Min 3V w/PA Chest IMPRESSION: RIBS: Normal x-ray examination of the ribs. CHEST: Normal x-ray examination of the chest. Electronically Signed: Alpesh Cedeño MD at 19:52 EDT , Service support ,
== END 2021-04-11 20:42 | disposition home or self-care (01) ==
PROVIDERS: Emergency Provider Emergency Medicine; PCP Pediatrics
DX: S20.212A Contusion of left front wall of thorax, initial encounter (principal); X58.XXXA Exposure to other specified factors, initial encounter; Y93.9 Activity, unspecified; Y92.9 Unspecified place or not applicable; Y99.9 Unspecified external cause status; F20.0 Paranoid schizophrenia; F31.9 Bipolar disorder, unspecified; F17.210 Nicotine dependence, cigarettes, uncomplicated; Z79.899 Other long term (current) drug therapy
CPT/HCPCS: 71101; 99282

== ENCOUNTER 2021-04-30 17:15 | Emergency (ER) | payer MEDICAID, SELFPAY ==
[2021-04-30] VITALS (7 sets, daily range): BP systolic 109–128; BP diastolic 53–94; PULSE 70–111; RESP 14–18; TEMP 37.3; O2SAT 96–99; BMI 25.4
--- NOTE | 2021-04-30 17:27 | ED.RN ---
Pt shouting obscenities in room, saying hes going to leave, calling this nurse a bitch HRO and sercurity at bedside. Dr Clark notified and medication ordered, see MAR.
[2021-04-30] MEDS: Ziprasidone IM 20 MG/ML VIAL IM (17:32)
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
--- NOTE | 2021-04-30 18:18 | ED.RN ---
Pt continues to threaten to leave, patient ambulating in the hallway, yelling at O Caldwell. Pt taking multiple trips to the restroom, patient then runs out of restroom yelling im drunk, im drunk Pt then proceeds to lay on the floor. Dr Clark notified. Medications ordered. See MAR
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
[2021-04-30] MEDS: LORazepam 2 MG/ML Syringe IM (18:22)
[2021-04-30] MEDS: DiphenhydrAMINE 50 MG/ML Syringe IM (18:22)
[2021-04-30 18:43] LABS: Amphetamine Urine VISTA NEGATIVE (<1000 ng/mL); Barbiturate Urine VISTA NEGATIVE (< 200 ng/mL); Benzodiazepine Urine VISTA NEGATIVE (< 200 ng/mL); Cocaine Urine VISTA NEGATIVE (< 300 ng/mL); Ecstacy Urine VISTA NEGATIVE (< 500 ng/mL); Methadone Urine VISTA NEGATIVE (< 300 ng/mL); PCP Urine VISTA NEGATIVE (< 25 ng/mL); THC Urine VISTA NEGATIVE (< 50 ng/mL); Vista UDS pH Range 6
[2021-04-30 19:14] LABS: Absolute Lymphocyte Count 2.52 X10^3/uL (0.83-4.51); Basophil# 0.05 X10^3/uL; Basophil% 0.4 % (0-1); Eosinophil# 0.06 X10^3/uL; Eosinophils% 0.5 % (0-5); Hematocrit 40.6 % (40-54); Hemoglobin 14.8 g/dL (13.0-16.5); Lymphocyte # 2.52 X10^3/ul (0.83-4.51); Mean Corp Hgb Conc 36.5 g/dL (32-36); Mean Corpuscular Hgb 32.5 pg (27.0-32.0); Mean Platelet Vol. 9.5 fl (6.2-12.0); Monocyte# 1.38 X10^3/uL; Monocyte% 11.5 % (0-10); NRBC Flagged by Analyzer 0 % (0-5); Neutrophil # 7.96 X10^3/uL (2.7-7.7); Neutrophil % 66.2 % (47-70); Platelet Count 286 K/mm3 (150-450); RBC Distribution Width CV 11.8 % (11.6-14.6); RBC Distribution Width SD 38.1 fl (35.1-43.9); Red Blood Count 4.56 M/mm3 (4.6-6.2)
--- NOTE | 2021-04-30 19:22 | CM.ED ---
Addendum entered by Maria Fernanda Muse 04/30/21 20:15: NATE faxed referral packet for patient to [facility] for their review. Maria Fernanda SALCEDO Original Note: NATE Note NATE called [facility] and was advised that they have beds available. Plan: Referral to [facility] when patient's blood work has been completed. Patient voiced he liked [facility] in the past. Maria Fernanda SALCEDO
--- NOTE | 2021-04-30 19:36 | EKG12_ITS ---
Test Reason : [facility] Blood Pressure : / mmHG Vent. Rate : 110 BPM Atrial Rate : 110 BPM P-R Int : 162 ms QRS Dur : 092 ms QT Int : 364 ms P-R-T Axes : 056 085 053 degrees QTc Int : 492 ms Sinus tachycardia Otherwise normal ECG Confirmed by KENNETH GREEN, ANNA MARIE ([id number]), editor magazine MAYCO ALCARAZ ([id number]) on 05/06/2021 12:59:27 PM Referred By: LALO Confirmed By:ANNA MARIE COOPER MD
[2021-04-30 19:41] LABS: ALB/GLOB Ratio 1.5 RATIO (0.9-2.4); AST(SGOT) 22 U/L (15-37); Alanine Aminotransfer ALT/SGPT 31 U/L (16-61); Alkaline Phosphatase 133 U/L (45-117); Anion Gap 11 (5-15); BUN 5 mg/dL (7-18); BUN/Creat Ratio 6.2 RATIO (10-20); Calcium,Total 9.4 mg/dL (8.5-10.1); Chloride 105 mmol/L (98-107); Creatinine, Serum 0.81 mg/dL (0.70-1.30); EST Glomerular Filtration Rate 127 mL/min (>60); Est Glom Filt Rate - Afr Amer 154 mL/min (>60); Estimated Creatinine Clearance 158.34 ml/min; Globulin 3.4 g/dL (2.2-4.2); Glucose 96 mg/dL (74-106); Potassium 3.5 mmol/L (3.5-5.1); Protein, Total 8.4 g/dL (6.4-8.2); Sodium Level 141 mmol/L (136-145)
--- NOTE | 2021-04-30 21:44 | CM.ED ---
NATE Note NATE received call from Amalia at [facility]. She reports that patient's status will not be reviewed by 10:30, when this residential mortgage underwriter leaves. Amalia was given the phone number for the [facility] ED nurses station and advised to call them for update about if patient has been accepted. NATE called patient's mother and left message for her advising patient has been referred to [facility] for placement. NATE called Aizza at [facility]) crisis. Aziza was updated that a referral had been made but the worker at [facility] did not think she would have an update prior to this residential mortgage underwriter going home at 10:30pm. NATE faxed referral packet to Aziza at [facility]. NATE updated Regina Pena dry pan charger regarding patient and that [facility] is considering patient for placement. NATE made a list with [facility] phone call, patient's mother and updated her that [facility] has been updated. Plan: To be Determined Maria Fernanda SALCEDO
--- NOTE | 2021-04-30 23:37 | ED.RN ---
FAXED REPORT TO [facility] FOR REVIEW
[2021-05-01 01:03] VITALS: RESP 14
[2021-05-01 02:00] VITALS: RESP 16
[2021-05-01 03:00] VITALS: RESP 13
[2021-05-01 04:04] VITALS: BP 120/64; PULSE 72; RESP 16; O2SAT 99
== END 2021-05-01 04:05 ==
PROVIDERS: Emergency Provider Emergency Medicine; PCP Pediatrics
DX: F20.0 Paranoid schizophrenia (principal); F31.9 Bipolar disorder, unspecified; Z91.14 Patient's other noncompliance with medication regimen; F17.210 Nicotine dependence, cigarettes, uncomplicated; Z79.899 Other long term (current) drug therapy
CPT/HCPCS: 80053; 80307; 82077; 85025; 87426; 93005; 96372; 99285; J3486

== ENCOUNTER 2022-05-25 12:16 | Emergency (ER) | payer MEDICAID, SELFPAY ==
[2022-05-25] VITALS (8 sets, daily range): BP systolic 101–135; BP diastolic 64–92; PULSE 64–117; RESP 14–20; TEMP 37.7; O2SAT 96–98; BMI 23.0
--- NOTE | 2022-05-25 13:00 | EX.ED.VIS.PS ---
HPI HPI - Psych History of Present Illness Chief Complaint: Mental Health Informant: patient and police/critical care specialist Narrative Narrative: Patient has a history of schizophrenia, has been acting unusual and aggressive at home, police were involved today and pink slipped him here because he was nonsensically speaking, threatening to hang himself, threatening to kill all of the officers onsite, and has been off of his psychiatric medication. The patient estimates for about a month, since I have been smoking meth. He is not forthcoming with regards to hallucinations but in asking about this he seems to be a little paranoid and states that he can hear people out there in the hallway talking about him. Denies being suicidal at this time. [facility] Medical History Bipolar disorder Paranoid schizophrenia Home Medications aripiprazole 20 mg tablet 1 tab PO DAILY 05/25/22 [History Last Taken Unknown] Allergy/AdvReac Type Severity Reaction Status Date / Time No Known Allergies Allergy Verified 05/25/22 12:25 Social History Smoking Status: Current every day smoker tobacco type: cigarettes substance use type: does not use ROS ROS ED Constitutional Constitutional ED: Denies chills or fever(s) Eyes Eyes: Denies change in vision or diplopia ENT ENT ED: Denies rhinorrhea or sore throat Cardiovascular Cardiovascular: Denies chest pain or palpitations Respiratory/Chest Respiratory/Chest: Denies cough or dyspnea Gastrointestinal Gastrointestinal: Denies abdominal pain, diarrhea, nausea or vomiting Genitourinary Genitourinary ED: Denies dysuria or hematuria Musculoskeletal Musculoskeletal: Denies back pain or neck pain Integumentary Denies abscess or rash Neurologic Neurologic: Denies headache(s), paresthesias or weakness Psychiatric Psychiatric: Reports as per HPI, depression, hallucinations, suicidal ideation and suicidal thoughts; Denies homicidal ideation EXAM Physical Exam Const Vital Signs: 05/25/22 12:17 05/25/22 14:00 05/25/22 15:00 Temperature 99.9 F H Temperature Source Temporal Pulse Rate 117 H Respiratory Rate 20 H 16 16 Blood Pressure 135/92 H Blood Pressure Mean 106 Pulse Ox 96 Oxygen Delivery Method Room Air Positive well nourished and well developed General Appearance ED: well developed and NAD HEENT Reports moist mucous membranes normocephalic and atraumatic Eyes PERRL and EOMs intact bilaterally General Eye ED: Negative for scleral icterus Neck no lymphadenopathy and supple Resp normal respiratory effort and clear to auscultation bilaterally Cardio no murmurs Rate: regular rate Rhythm: regular rhythm GI non-tender and non-distended Auscultation: normoactive bowel sounds Palpation: soft Back/Spine no CVA tenderness and normal ROM Extremity normal to inspection General Extremety ED: Negative for edema General Extremity: Negative for edema Neuro oriented x3, CN's II-XII intact bilaterally, no sensory deficits noted and gait normal Sensorium / Orientation: alert Motor Exam: strength 5/5 throughout Psych mental status grossly normal, thought process normal, cooperative and denies homicidal ideation Psych Narrative: Easily agitated, redirectable. A little paranoid at times and at other times illogical Mood & Affect: depressed Thought Content: No suicidality Skin Lesions: no lesions Rashes: no rashes MDM MDM MDM Narrative Medical decision making narrative: Toxicology still pending, his potassium is a little low we will give him a dose of potassium to ensure does not go lower, and he has a bit of a leukocytosis which I expect is probably related to his methamphetamine use. We will verify that his CPK is within normal limits. Given that, he is medically cleared. Social work evaluated him and agrees he needs to be admitted psychiatrically. Lab Data Attestation: I reviewed the patient's lab results. Labs: Laboratory Results - last 24 hr 05/25/22 05/25/22 05/25/22 13:12 13:12 13:12 WBC 16.0 H RBC 4.37 L Hgb 14.4 Hct 40.1 MCV 91.8 MCH 33.0 H MCHC 35.9 RDW Std Deviation 40.8 RDW Coeff of Darvin 12.3 Plt Count 275 MPV 10.5 Immature Gran % (Auto) 0.600 Neut % (Auto) 75.2 H Lymph % (Auto) 15.4 L [place] % (Auto) 8.3 Eos % (Auto) 0.1 Baso % (Auto) 0.4 Absolute Neuts (auto) 12.0 H Absolute Lymphs (auto) 2.45 Nucleated RBC % 0 Sodium 140 Potassium 3.4 L Chloride 106 Carbon Dioxide 24.0 Anion Gap 10 BUN 19 H Creatinine 1.13 Estim Creat Clear Calc 111.84 Est GFR (MDRD) Af Amer 104 Est GFR (MDRD) Non-Af 86 BUN/Creatinine Ratio 16.8 Glucose 91 Calcium 10.2 H Ethyl Alcohol < 3.0 Discharge Plan Triage Chief Complaint: Mental Health Other Complaint: Suicidal ED Provider: Owen Aggarwal Dx/Rx/DC Orders Clinical Impression: Acute psychosis, Paranoid schizophrenia, Substance abuse, Noncompliance with medications Prescriptions: No Action aripiprazole 20 mg tablet 1 tab PO DAILY Label Comments: take 1 tablet by mouth once daily Primary Care Provider: Pal Menon Referrals: Pal Menon MD [Primary Care Provider] - Disposition Disposition: Psychiatric Hospital or Unit
[2022-05-25] MEDS: OLANZapine 5 MG/TAB TAB.RAPDIS 10 MG PO (13:10)
[2022-05-25 13:29] LABS: Absolute Lymphocyte Count 2.45 X10^3/uL (0.83-4.51); Basophil# 0.06 X10^3/uL; Basophil% 0.4 % (0-1); Eosinophil# 0.02 X10^3/uL; Eosinophils% 0.1 % (0-5); Hematocrit 40.1 % (40-54); Hemoglobin 14.4 g/dL (13.0-16.5); Lymphocyte # 2.45 X10^3/ul (0.83-4.51); Lymphocyte % 15.4 % (19-41); Mean Corp Hgb Conc 35.9 g/dL (32-36); Mean Corpuscular Volume 91.8 fL (80-94); Mean Platelet Vol. 10.5 fl (6.2-12.0); Monocyte# 1.33 X10^3/uL; Monocyte% 8.3 % (0-10); NRBC Flagged by Analyzer 0 % (0-5); Neutrophil % 75.2 % (47-70); Platelet Count 275 K/mm3 (150-450); RBC Distribution Width CV 12.3 % (11.6-14.6); RBC Distribution Width SD 40.8 fl (35.1-43.9); Red Blood Count 4.37 M/mm3 (4.6-6.2)
[2022-05-25 13:41] LABS: Anion Gap 10 (5-15); BUN 19 mg/dL (7-18); BUN/Creat Ratio 16.8 RATIO (10-20); Calcium,Total 10.2 mg/dL (8.5-10.1); Chloride 106 mmol/L (98-107); Creatinine, Serum 1.13 mg/dL (0.70-1.30); EST Glomerular Filtration Rate 86 mL/min (>60); Est Glom Filt Rate - Afr Amer 104 mL/min (>60); Estimated Creatinine Clearance 111.84 ml/min; Glucose 91 mg/dL (74-106); Potassium 3.4 mmol/L (3.5-5.1); Sodium Level 140 mmol/L (136-145)
[2022-05-25 13:55] LABS: Alcohol, Blood (Medical)-Serum < 3.0 mg/dL
[2022-05-25 16:32] LABS: CPK Total, Creatine Kinase 618 U/L (39-308)
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
[2022-05-25 17:09] LABS: Amphetamine Urine VISTA NEGATIVE (<1000 ng/mL); Barbiturate Urine VISTA NEGATIVE (< 200 ng/mL); Benzodiazepine Urine VISTA NEGATIVE (< 200 ng/mL); Cocaine Urine VISTA NEGATIVE (< 300 ng/mL); Ecstacy Urine VISTA NEGATIVE (< 500 ng/mL); Methadone Urine VISTA NEGATIVE (< 300 ng/mL); PCP Urine VISTA NEGATIVE (< 25 ng/mL); THC Urine VISTA POSITIVE (< 50 ng/mL); Vista UDS pH Range 5
--- NOTE | 2022-05-25 17:10 | CM.ED ---
Addendum entered by Tamra Pratt 05/25/22 20:07: NATE also placed a call to [facility] - they also have male adult beds available. NATE faxed referral to [facility]. Addendum entered by Tamra Pratt 05/25/22 19:47: NATE placed a call to [facility] to inquire about referral. NATE updated that pt is on Waitlist as they do not have beds currently available. Intake unable to tell this worker when a bed will be available. Pt has been to [facility] before so SW placed a call to that facility - they do have male beds available. SW faxed referral to [facility]. Original Note: Social Work Note SW placed a call to [facility] - they do have adult male beds available. NATE faxed referral to [facility]. Tamra Pratt SUPERVISOR MACHINING, WATERPROOF COATING MACHINE TENDER
[2022-05-25] MEDS: Potassium Chloride Oral Tablet 20 MEQ 40 MEQ PO (17:43)
--- NOTE | 2022-05-25 21:52 | CM.ED ---
Social Work Note NATE placed a call to [facility] and spoke with Zulema. Zulema states pt has been accepted, they need [place] faxed to them with their name on the top. Accepting physician is Jenny Davis CNP. Pt is going to [facility]. RN to RN [phone]. NATE updated MD Snider. NATE in to speak with pt. SW updated pt that he will be going to [facility] and updated him that this worker did call his mother Angella to update on discharge, pt states ok. NATE place a call to pt's mother Angella and updated her that pt has been accepted to [facility] and will be discharged. Angella asked if WINSTON had been signed so she could get pt's toxicology results. NATE informed Angella that this worker will check with RN. NATE updated RN. RN to ask pt if WINSTON can be signed. [place] to arrange transportation. NATE called [facility] and updated staff to disregard referral. NATE called [facility] and updated staff to disregard referral. Plan: [facility] Tamra Pratt ELEVATOR OPERATOR, PREPARATION OPERATOR
[2022-05-26 00:20] VITALS: RESP 16
[2022-05-26 01:20] VITALS: RESP 16
== END 2022-05-26 01:39 ==
PROVIDERS: Emergency Provider Emergency Medicine; PCP Pediatrics; Visit Provider Emergency Medicine
DX: F20.0 Paranoid schizophrenia (principal); F15.10 Other stimulant abuse, uncomplicated; F31.9 Bipolar disorder, unspecified; Z91.14 Patient's other noncompliance with medication regimen; F17.210 Nicotine dependence, cigarettes, uncomplicated; Z79.899 Other long term (current) drug therapy
CPT/HCPCS: 80048; 80307; 82077; 82550; 85025; 87811; 99285

== ENCOUNTER 2022-06-03 11:04 | Emergency (ER) | payer MEDICAID, SELFPAY ==
[2022-06-03 11:05] VITALS: BP 153/115; PULSE 118; RESP 22; TEMP 36.6; O2SAT 95; BMI 21.9
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
[2022-06-03 12:13] LABS: Absolute Neutrophil Count 7.2 X10^3/uL (2.0-7.7); Basophil# 0.06 X10^3/uL; Basophil% 0.6 % (0-1); Eosinophil# 0.06 X10^3/uL; Eosinophils% 0.6 % (0-5); Hematocrit 41.4 % (40-54); Hemoglobin 14.8 g/dL (13.0-16.5); Lymphocyte % 20.4 % (19-41); Mean Corp Hgb Conc 35.7 g/dL (32-36); Mean Corpuscular Hgb 32.7 pg (27.0-32.0); Mean Corpuscular Volume 91.6 fL (80-94); Mean Platelet Vol. 10.5 fl (6.2-12.0); Monocyte# 1.25 X10^3/uL; Monocyte% 11.6 % (0-10); NRBC Flagged by Analyzer 0 % (0-5); Neutrophil # 7.17 X10^3/uL (2.7-7.7); Neutrophil % 66.3 % (47-70); Platelet Count 330 K/mm3 (150-450); RBC Distribution Width CV 12.4 % (11.6-14.6); RBC Distribution Width SD 41.4 fl (35.1-43.9); Red Blood Count 4.52 M/mm3 (4.6-6.2); White Blood Count 10.8 K/mm3 (4.4-11.0)
[2022-06-03 12:24] LABS: ALB/GLOB Ratio 1.3 RATIO (0.9-2.4); AST(SGOT) 47 U/L (15-37); Alanine Aminotransfer ALT/SGPT 32 U/L (16-61); Albumin, Serum 4.8 g/dL (3.2-5.0); Alkaline Phosphatase 110 U/L (45-117); Anion Gap 11 (5-15); BUN 15 mg/dL (7-18); BUN/Creat Ratio 14.4 RATIO (10-20); Calcium,Total 9.3 mg/dL (8.5-10.1); Chloride 100 mmol/L (98-107); Creatinine, Serum 1.04 mg/dL (0.70-1.30); EST Glomerular Filtration Rate 94 mL/min (>60); Est Glom Filt Rate - Afr Amer 114 mL/min (>60); Estimated Creatinine Clearance 118.82 ml/min; Globulin 3.6 g/dL (2.2-4.2); Glucose 202 mg/dL (74-106); Potassium 3.3 mmol/L (3.5-5.1); Protein, Total 8.4 g/dL (6.4-8.2); Sodium Level 136 mmol/L (136-145)
[2022-06-03 12:52] LABS: Alcohol, Blood (Medical)-Serum < 3.0 mg/dL
[2022-06-03 13:08] LABS: Amphetamine Urine VISTA POSITIVE (<1000 ng/mL); Barbiturate Urine VISTA NEGATIVE (< 200 ng/mL); Benzodiazepine Urine VISTA NEGATIVE (< 200 ng/mL); Cocaine Urine VISTA NEGATIVE (< 300 ng/mL); Ecstacy Urine VISTA NEGATIVE (< 500 ng/mL); Methadone Urine VISTA NEGATIVE (< 300 ng/mL); PCP Urine VISTA NEGATIVE (< 25 ng/mL); THC Urine VISTA POSITIVE (< 50 ng/mL); Vista UDS pH Range 5
--- NOTE | 2022-06-03 13:18 | NURSING ---
karolina Butterfield from Crisis a voicemail to get pt evaluated
[2022-06-03] MEDS: Potassium Chloride Oral Tablet 20 MEQ PO (13:45)
--- NOTE | 2022-06-03 13:51 | NURSING ---
SPOKE WITH HENRIK FROM CRISIS. FACESHEET, LABS, AND ECHART SENT OVER AT 13:45
--- NOTE | 2022-06-03 15:13 | ED.RN ---
PT CONTINUES TO GET UP AND GO INTO RESTROOM.PT THEN DRINKS COPIOUS AMOUNTS OF WATER AND SPILLS ALL OVER THE FLOOR. PT MADE AWARE THAT IF HE CONTINUES THAT BEHAVIOR HE WILL NOT BE ALLOWED TO GET UP WALK TO THE BATHROOM.PT VOICES UNDERSTANDING.PT DIRECTABLE AND FOLLOWS COMMANDS WHEN GIVEN FIRM BOUNDARIES
--- NOTE | 2022-06-03 15:25 | NURSING ---
HENRIK FROM CRISIS CALLED IN TO EVALUATE PT
[2022-06-03] MEDS: ARIPiprazole 10 MG Tablet 20 MG PO (16:25)
[2022-06-03] MEDS: Divalproex (ER) 500 MG Tablet PO (16:25)
--- NOTE | 2022-06-03 17:34 | ED.RN ---
GENERATIONS REVIEWING CHART
[2022-06-03] MEDS: Nicotine Polacrilex 2 MG GUM PO (17:41)
[2022-06-03 18:16] VITALS: BP 103/63; PULSE 83; RESP 16; O2SAT 100
--- NOTE | 2022-06-03 18:21 | ED.RN ---
PT BEGINS SCREAMING AGAIN. THIS RN IN TO ROOM. PT AWARE THIS BEHAVIOR WILL NOT BE TOLERATED. PT VOICES UNDERSTANDING
[2022-06-03] MEDS: Ondansetron ODT 4 MG Tablet 8 MG PO (18:43)
[2022-06-03 19:03] LABS: CPK Total, Creatine Kinase 807 U/L (39-308)
== END 2022-06-03 20:53 ==
PROVIDERS: Emergency Provider Emergency Medicine; PCP Pediatrics; Visit Provider Emergency Medicine
DX: F20.0 Paranoid schizophrenia (principal); F19.10 Other psychoactive substance abuse, uncomplicated; F31.9 Bipolar disorder, unspecified; E87.6 Hypokalemia; F17.210 Nicotine dependence, cigarettes, uncomplicated; Z79.899 Other long term (current) drug therapy
CPT/HCPCS: 80053; 80307; 82077; 82550; 85025; 87811; 99285; A4216

== ENCOUNTER 2024-01-05 08:24 | Emergency (ER) | payer MEDICAID, SELFPAY ==
[2024-01-05 08:26] VITALS: BP 165/97; PULSE 71; RESP 14; TEMP 36.7; O2SAT 98
--- NOTE | 2024-01-05 09:08 | EDS_ITS ---
HPI HPI - Psych History of Present Illness Chief Complaint: Mental Health Narrative Narrative: 23-year-old male with history of paranoid schizophrenia presenting for evaluation. Apparently he was at [employer] and became scared and manage saw ghosts and tripped and fell. Patient has not been sleeping well. Denies SI or HI. PFSH PFSH Medical History Bipolar disorder Paranoid schizophrenia Home Medications aripiprazole 20 mg tablet 1 tab PO DAILY 05/25/22 [History Last Taken Unknown] divalproex 500 mg tablet,extended release 24 hr 500 tab PO BID 06/03/22 [History Last Taken Unknown] Allergy/AdvReac Type Severity Reaction Status Date / Time No Known Allergies Allergy Verified 01/05/24 08:26 Social History Smoking Status: Current every day smoker tobacco type: cigarettes substance use type: does not use ROS ROS ED Review of Systems ROS Unobtainable: Denies due to encephalopathy Constitutional Constitutional ED: Denies chills or fever(s) Eyes Eyes: Denies blurry vision or change in vision ENT ENT ED: Denies ear pain or sore throat Cardiovascular Cardiovascular: Denies chest pain, palpitations or racing heartbeat Respiratory/Chest Respiratory/Chest: Denies cough, dyspnea or sputum Gastrointestinal Gastrointestinal: Denies abdominal pain, constipation, diarrhea, nausea or vomiting Genitourinary Genitourinary ED: Denies dysuria, hematuria or urinary frequency Musculoskeletal Musculoskeletal: Denies arthralgias, myalgias or neck pain Integumentary Denies abscess, Abrasions or rash Neurologic Neurologic: Denies headache(s), paresthesias or weakness Psychiatric Psychiatric: Reports anxiety; Denies depression, suicidal ideation or suicidal thoughts Endocrine Endocrinology: Denies polydipsia or polyuria EXAM Physical Exam Const Vital Signs: 01/05/24 08:26 Temperature 98.1 F Temperature Source Temporal Pulse Rate 71 Respiratory Rate 14 Blood Pressure 165/97 H Blood Pressure Mean 119 Pulse Ox 98 Oxygen Delivery Method Room Air Positive well nourished General Appearance ED: Negative for pallor HEENT Reports moist mucous membranes Eyes PERRL Resp normal respiratory effort Cardio Rate: regular rate Rhythm: regular rhythm Neuro oriented x3 and CN's II-XII intact bilaterally Psych Appearance: grossly normal Activity / Motor Behavior: disorganized Speech: normal speech Mood & Affect: anxious Thought Process: circumstantial Thought Content: No suicidality and No homicidality Attention / Concentration: attention grossly intact Memory / Cognition: memory grossly intact Insight: fair Judgement: fair Skin General Skin Exam: Negative for jaundice or pallor MDM MDM MDM Narrative Medical decision making narrative: Patient presenting a fairly solid dose and has history of paranoid schizophrenia. He is agitated but he does not appear to be manic. Ultimately determined to send this patient home with his family. Return precautions discussed. Discharge Plan Triage Chief Complaint: Mental Health ED Provider: Howard Menchaca Dx/Rx/DC Orders Prescriptions: No Action aripiprazole 20 mg tablet 1 tab PO DAILY Patient Comments: take 1 tablet by mouth once daily divalproex 500 mg tablet extended release 24 hr 500 tab PO BID Primary Care Provider: Pal Menon Referrals: Pal Menon MD [Primary Care Provider] - Disposition Disposition: LEFT WITHOUT BEING SEEN Discharge Date/Time: 01/05/24 10:08
--- NOTE | 2024-01-05 09:18 | ED.RN ---
PT WAS YELLING AND SCREAMING IN THE ROOM, SPIT ON THE COUNTER AND IN THE SINK. WHEN THIS NURSE AND MEDIC STUDENT WENT IN TO DRAW BLOOD PT IMMEDIATELY TOLD THIS NURSE TO FUCK OFF . EXPLAINED TO PT THE BEHAVIORS THAT WOULD NOT BE TOLERATED AND IF PT WANTS TO CONTINUE THIS BEHAVIOR HE COULD LEAVE. PT THEN GRABBED THE BLOOD DRAWN TUBES AND THROUGH THEM AND GRABBED THE NEEDLE AND THREW IT WELL. PT WAS THEN TOLD HE COULD LEAVE AND HE GOT OUT OF THE BED THROWING THE SHEET, PT THEN AMBULATED FROM THE ER AND THIS NURDSE AND ANOTHER FOLLOWED TO ENSURE THE SAFETY OF THE OTHER PTS AND STAFF. PHYSICIAN WAS NOTIFIED
--- OUTSIDE RECORDS SUMMARY | 2024-01-05 10:43 | XMS RPT_ITS | CCD ---
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 recurrent UTI or kidney infection. Skin: denies unusual rashes. No history of skin cancer, bleeding/changing moles, or unusual skin lesions. Neurologic: Denies recurrent ABDULLAHI, change in vision, hearing or smell, tremors, unusual weakness, loss of sensation, or difficulty with balance or gait. No history of epilepsy/convulsions, migraine, head/spinal injuries, or stroke/TIA. Psychiatric: see HPI Endocrine: denies unusual thirst, hunger, excessive urination, change in skin or hair texture, emotional lability. No history of thryoid, pituitary or hormonal problems. Hematologic: denies unusual bleeding, bruising, or history of anemia or blood transfusion. Denies hx blood clots. Infections: denies risk factors for HIV, hepatitis or history of unusual infection. Immunizations are up to date. Musculoskeletal: denies unusual stiffness, muscles aches, joint pain, or swelling. Denies recurrent sprain or disruption of joints, debilitating arthritis, gout, or other musculoskeletal disease. No Hx back injury, spinal stenosis, radiculopathy. EXAM: BP (!) 98/40 Pulse 74 Resp 12 Ht 179 cm (5' 10.47 ) Wt 73.5 kg (162 lb) SpO2 99% BMI 22.93 kg/m Pleasant lean young man in no acute distress. Alert and oriented all spheres. Mildly flat affect and cognition. Speech normal. No deficits to learning or comprehension. Skin warm, dry, pink to lips and nailbeds. Normal turgor. Respirations regular and unlabored. HEENT: NCAT. No scleral icterus or conjunctival injection. TM's clear. Nose and oropharynx free from injection or lesion. Oral membranes moist and pink. No cervical lymph nodes. Thyroid non-tender, no masses, or enlargement. Carotids pulses 2+/4+ without bruits. No JVD with HOB at 30 degrees. Chest is normal shape. Lungs are clear to all rios with good air exchange through out. HRRR without murmur or gallop. No lifts, heaves, or rubs. Abdomen: active bowel sounds throughout, soft, nontender, no masses or organomegaly. No CVAT. Bilateral inguinal lymph nodes 1/4+. Penis circumcised. + thick yellowish green mucoid discharge. Testicles descended bilaterally. Perineum with excoriated areas almost like scratch payne. No anal irritation. No masses or nodules. No hernias. Rectal: normal tone, no internal or external lesions. Prostate 1/4+ size,no nodules, non-tender. No nodules. Stool light brown GUAIAC neg with QC checked Extrem: no clubbing or cyanosis. Edema: none. Extremities are warm and pink with prompt capillary refill. Gait and balance normal. Sensation grossly intact. Negative findings: speech normal, mental status intact, cranial nerves 2-12 intact, muscle tone normal, DTRs 2/4+ and symmetric ASSESSMENT/PLAN: 1. Dysuria - ICD9: 788.1, ICD10: R30.0 (primary diagnosis) acute - Patient education for prevention given - UA DIP, URINE (POC) - GC/CHLAMYDIA AMPLIF, URINE - CEFTRIAXONE 500 MG SOLUTION FOR INJECTION - DOXYCYCLINE HYCLATE 100 MG TABLET - HIV 1 2 COMBO(AG/AB),WITH REFLEX TO DIFFERENTIATION - HEP C AB IA W/CONF SCRN - SYPHILIS TOTAL W/REFLEX 2. Urethritis - ICD9: 597.80, ICD10: N34.2 As above - GC/CHLAMYDIA AMPLIF, URINE - CEFTRIAXONE 500 MG SOLUTION FOR INJECTION - DOXYCYCLINE HYCLATE 100 MG TABLET - HIV 1 2 COMBO(AG/AB),WITH REFLEX TO DIFFERENTIATION - HEP C AB IA W/CONF SCRN - SYPHILIS TOTAL W/REFLEX Educated on importance of simultaneous partner treatment. Needs to contact all sexual contacts in last 6 months. Discussed reportable illness. Educated on STD risks, condom and double protection 3. High risk heterosexual behavior - ICD9: V69.2, ICD10: Z72.51 - HIV 1 2 COMBO(AG/AB),WITH REFLEX TO DIFFERENTIATION - HEP C AB IA W/CONF SCRN - SYPHILIS TOTAL W/REFLEX 4. Perineal rash in male - ICD9: 782.1, ICD10: R21 - [place]STATIN-TRIAMCINOLONE 100,000 UNIT/GRAM-0.1 % TOPICAL OINTMENT 5. Tetrahydrocannabinol (THC) use disorder, moderate, dependence (HCC) - ICD9: 304.30, ICD10: F12.20 - TOX SCREEN ROUT UR - PAIN PANEL, UR QUANT - PAIN PANEL, UR QUANT - SPECIMEN VALIDITY, URINE 6. Bipolar affective disorder, remission status unspecified (HCC) - ICD9: 296.80, ICD10: F31.9 [facility] Forms for suitable adoption household member are to be completed after records review. 7. Polysubstance use disorder history - ICD9: 305.90, ICD10: F19.90 Radha Adams PA-C documented in this encounter [facility] Evaluation + Plan note No data available for this section [facility] Diagnosis Tinea cruris- Primary Dermatophytosis of groin and perianal area Bipolar affective disorder, remission status unspecified (HCC) Polysubstance use disorder history [facility] Diagnosis Tinea cruris- Primary Dermatophytosis of groin and perianal area Substance abuse in remission (HCC) Other, mixed, or unspecified nondependent drug abuse, in remission Wellness examination [facility] NATALIE MARTIN MD: SIGN, VERIFY Event Display: EKG [ED AO] - CV Authored Date: [id number] [facility] Summary Purpose Family History No Family History Records FoundNo Family History Records FoundNo Family History Records FoundNo Family History Records Found Advance Directives No Advanced Directives Records FoundNo Advanced Directives Records FoundNo Advanced Directives Records FoundNo Advanced Directives Records Found Medications Administered Section Inactive Administered Medications - up to 3 most recent administrations Medication Order MAR Action Action Date Dose Rate Site cefTRIAXone 500 mg intramuscular injection (ROCEPHIN) 500 mg, INTRAMUSCULAR, ONCE, 1 dose, On Tue08/10/22 at 1730, Please document the antimicrobial indication: Empiric Given 08/10/2022 5:37 PM EDT 500 mg Buttocks, Right Additional Source Comments (unrecognized sect ion and content) No Status Records FoundNo Status Records FoundNo Status Records FoundNo Status Records Found INFORMATION SOURCE (unrecogn ized section and content) DATE CREATED AUTHOR AUTHOR'S ORGANIZ ATION 10/18/[address] [facility] DATE CREATED AUTHOR AUTHOR'S ORGANIZ ATION 10/26/2022 [facility] ([place]) DATE CREATED AUTHOR AUTHOR'S ORGANIZ ATION 01/01/2024 [facility] Source Comments (unrecognize d section and content) In the event this informatio n is protected by the Federal Confidentiality of Alcohol and Drug Abuse Patient Records regulations: The Federal rules restrict any use of the information to criminally investigate or prosecute any alcohol or drug abuse patient.[facility] the event this information is protected by the Federal Confidentiality of Alcohol and Drug Abuse Patient Records regulations: The Federal rules restrict any use of the information to criminally investigate or prosecute any alcohol or drug abuse patient.[facility] the event this information is protected by the Federal Confidentiality of Alcohol and Drug Abuse Patient Records regulations: The Federal rules restrict any use of the information to criminally investigate or prosecute any alcohol or drug abuse patient.[facility] the event this information is protected by the Federal Confidentiality of Alcohol and Drug Abuse Patient Records regulations: The Federal rules restrict any use of the information to criminally investigate or prosecute any alcohol or drug abuse patient.[facility] Reason for Visit (unrecogniz ed section and content) Reason Comments Results Reason Comments Rash Reason Comments Follow Up Exam for medical sta tement for foster caregiver/adoptive applicant form Derm Problem Tinea cruris- still having issues, almost out of ketoconazole cream Care Teams (unrecognized sec tion and content) Skilled Laborer Relationship Specialty Start Date End Date Dennis Adams MD [address] [place], [place] [phone] PCP - General Family Medicine 08/03/22 Skilled Laborer Relationship Specialty Start Date End Date Dennis Adams MD [address] [place], [place] [phone] PCP - General Family Medicine 08/03/22 Skilled Laborer Relationship Specialty Start Date End Date Dennis Adams MD [address] [place] [address] PCP - General Family Medicine 08/03/22 Care Team (unrecognized sect ion and content) Care Team Personnel Name: PHYSICIAN, NONE Position: Physician Member Role: Primary Care Physician Name: NATALIE MARTIN MD Position: ED Physician Member Role: ED Physician [facility]: [facility] [address] [place] [address] Name: Soledad Johnson RN Position: RN Member Role: ED RN Name: STEFAIN ESTRADA DO Position: Resident Member Role: ED Physician Address: Address: [address] [place] [address] ED Resident [address] FOR RECORDS PERTAINING TO PATIENTS WHO ARE OR HAVE BEEN ENROLLED IN A CHEMICAL DEPENDENCY/SUBSTANCEABUSE PROGRAM, SOME INFORMATION MAY BE OMITTED. This clinical summary was aggregated from multiple sources. Caution should be exercised in using it in the provision of clinical care. This summary normalizes information from multiple sources, and as a consequence, information in this document may materially change the coding, format and clinical context of patient data. In addition, data may be omitted in some cases. CLINICAL DECISIONS SHOULD BE BASED ON THE PRIMARY CLINICAL RECORDS. [employer] provides no warranty or guarantee of the accuracy or completeness of information in this document.
== END 2024-01-05 10:08 | disposition home or self-care (01) ==
LOC: ED 10:07
PROVIDERS: Emergency Provider Student in an Organized Health Care Education/Training Program; PCP Pediatrics; Visit Provider Student in an Organized Health Care Education/Training Program
DX: F20.0 Paranoid schizophrenia (principal); F17.210 Nicotine dependence, cigarettes, uncomplicated
CPT/HCPCS: 99282

== ENCOUNTER 2024-01-09 18:39 | Emergency (ER) | payer MEDICAID, SELFPAY ==
[2024-01-09 18:39] VITALS: TEMP 36.8; BMI 27.6
--- NOTE | 2024-01-09 19:12 | EX.ED.VIS.PS ---
HPI <TARA Bone - Last Filed: 01/09/24 21:18> HPI - Psych History of Present Illness Chief Complaint: Mental Health Narrative Narrative: Patient presenting today after being pink slipped by Marizol MORLEY. [place] slip reports that patient reported he was going to starve himself to and that he had only eaten a yellow Kadie in the last week. He does have a history of bipolar disorder and schizophrenia and has not been taking his medication correctly. He had told please officers that he thought rappers were speaking to him in his head and that his friend Ag was going to kill him because he knew too much information. Patient reports that he took a blue meth and that he was sent in because of [facility] <TARA Bone - Last Filed: 01/09/24 21:18> [facility] Medical History Bipolar disorder Paranoid schizophrenia Home Medications aripiprazole 20 mg tablet 1 tab PO DAILY 05/25/22 [History Last Taken Unknown] divalproex 500 mg tablet,extended release 24 hr 500 tab PO BID 06/03/22 [History Last Taken Unknown] olanzapine 5 mg tablet 5 mg PO DAILY 01/09/24 [History Last Taken Unknown] Allergy/AdvReac Type Severity Reaction Status Date / Time No Known Allergies Allergy Verified 01/05/24 08:26 Social History Smoking Status: Current every day smoker tobacco type: cigarettes substance use type: does not use ROS <TARA Bone - Last Filed: 01/09/24 21:18> ROS ED Constitutional Constitutional ED: Denies chills or fever(s) Cardiovascular Cardiovascular: Denies chest pain Respiratory/Chest Respiratory/Chest: Denies cough or dyspnea Gastrointestinal Gastrointestinal: Denies abdominal pain, nausea or vomiting Musculoskeletal Musculoskeletal: Denies arthralgias or myalgias Integumentary Denies rash Neurologic Neurologic: Denies weakness Psychiatric Psychiatric: Reports hallucinations and paranoia; Denies homicidal ideation or suicidal ideation EXAM <TARA Bone - Last Filed: 01/09/24 21:18> Physical Exam Const Vital Signs: 01/09/24 18:39 01/09/24 19:39 01/09/24 21:13 Temperature 98.3 F Temperature Source Temporal Respiratory Rate 18 18 Positive well nourished, well developed and no apparent distress General Appearance ED: well developed HEENT Reports normocephalic and head/scalp atraumatic Mouth ED: Yes moist mucous membranes normal Eyes PERRL and EOMs intact bilaterally Neck full ROM and supple Chest Wall inspection of chest normal Resp normal respiratory effort and clear to auscultation bilaterally Cardio regular rate and regular rhythm GI soft to palpation, non-tender, non-distended and no masses Back/Spine normal ROM and normal to inspection Extremity normal to inspection and full ROM Neuro oriented x3, CN's II-XII intact bilaterally, moves all extremities, no focal motor deficits and no sensory deficits noted Sensorium / Orientation: awake and alert Psych Appearance: grossly normal Attitude: bizarre Activity / Motor Behavior: fidgetting Thought Process: disorganized and illogical Thought Content: delusion(s) and hallucination(s) Insight: poor Judgement: poor Skin no rashes or lesions noted and no wounds <Dr. Ainsley Baltazar DO - Last Filed: 01/09/24 22:59> Physical Exam Const Vital Signs: 01/09/24 18:39 01/09/24 19:39 01/09/24 21:13 Temperature 98.3 F Temperature Source Temporal Respiratory Rate 18 18 MDM <TARA Bone - Last Filed: 01/09/24 21:18> [facility] Narrative Medical decision making narrative: Patient presenting after being planks up by Marizol MORLEY. History of paranoid schizophrenia, he has been here several times in the past. He does report hearing voices in his head thinking that rappers were speaking to him and that his friend Ag was going to kill him. He tells me that he was sent in by [facility]. Patient is nonsensical. He has been placed in the past to psychiatric facility. I do think that he would benefit from placement now due to psychosis. Clearance labs will be obtained, he is medically cleared for placement. Crisis will be consulted. Lab Data Attestation: I reviewed the patient's lab results. Labs: Laboratory Results - last 24 hr 01/09/24 19:32 WBC 16.1 H RBC 4.53 L Hgb 14.6 Hct 40.7 MCV 89.8 MCH 32.2 H MCHC 35.9 RDW Std Deviation 38.9 RDW Coeff of Darvin 11.9 Plt Count 344 MPV 10.0 Immature Gran % (Auto) 0.600 Neut % (Auto) 73.7 H Lymph % (Auto) 17.6 L Calhoun % (Auto) 7.5 Eos % (Auto) 0.2 Baso % (Auto) 0.4 Absolute Neuts (auto) 11.8 H Absolute Lymphs (auto) 2.83 Nucleated RBC % 0 Sodium 140 Potassium 3.9 Chloride 109 H Carbon Dioxide 24.0 Anion Gap 7 BUN 6 L Creatinine 0.95 Estim Creat Clear Calc 127.70 Est GFR (MDRD) Af Amer 125 Est GFR (MDRD) Non-Af 103 BUN/Creatinine Ratio 6.3 L Glucose 122 H Calcium 9.6 Urine Opiates Screen NEGATIVE Urine Methadone Screen NEGATIVE Ur Barbiturates Screen NEGATIVE Ur Phencyclidine Scrn NEGATIVE Ur Amphetamines Screen NEGATIVE MDMA (Ecstasy) Screen POSITIVE H U Benzodiazepines Scrn NEGATIVE Urine Cocaine Screen NEGATIVE U Cannabinoids Screen POSITIVE H Ur Drug Screen Comment Ethyl Alcohol < 3.0 <Dr. Ainsley Baltazar, DO - Last Filed: 01/09/24 22:59> MDM MDM Narrative Medical decision making narrative: Patient presenting after being planks up by Marizol MORLEY. History of paranoid schizophrenia, he has been here several times in the past. He does report hearing voices in his head thinking that rappers were speaking to him and that his friend Ag was going to kill him. He tells me that he was sent in by [facility]. Patient is nonsensical. He has been placed in the past to psychiatric facility. I do think that he would benefit from placement now due to psychosis. Clearance labs will be obtained, he is medically cleared for placement. Crisis will be consulted. I have personally performed a face to face assessment of the patient and have reviewed the PRAVEENA Note. I performed a substantive portion of the visit including all aspects of the following. My uriostegui findings include: History is [patient presents with police escort for mental health evaluation. Patient with history of schizophrenia. Patient with flight of ideas. States that he has been taking meth and started taking some sort of blue methamphetamine. Patient poor historian.] Patient apparently was kicked out of recovery house as he has not been taking his medications. Exam is [HEENT-PERRLA, EOMI. Cranial nerves II through XII grossly intact. TMs clear. Mucous membranes moist. No adenopathy. Atraumatic Cardiovascular-regular rate and rhythm without murmur or ectopy Lungs-clear to auscultation, chest wall stable without crepitus or subcu emphysema Abdomen-normoactive bowel sounds, soft, nontender, no rebound or rigidity, no peritoneal signs. Extremities-intact ?4, normal range of motion, normal pulses, atraumatic] Medical Decison Making [patient's workup significant for slightly elevated white blood cell count of 16.1 which appears to be chronic and may be related to agitation. Hemoglobin 14.6 and platelet count of 344. Chemistries unremarkable. Talk screen positive for MDMA as well as marijuana. Alcohol was negative. Patient was evaluated by crisis who felt he would benefit from inpatient hospitalization. Patient will be transferred to psychiatric facility for definitive care and treatment. While in department initially did give him a milligram of Ativan as he was just lab uncontrollably and speak nonsensically. Patient progressively became more agitated and had to be chemically restrained with Haldol 10 mg IM.] Other additions or changes: [None] Lab Data Labs: Laboratory Results - last 24 hr 01/09/24 19:32 WBC 16.1 H RBC 4.53 L Hgb 14.6 Hct 40.7 MCV 89.8 MCH 32.2 H MCHC 35.9 RDW Std Deviation 38.9 RDW Coeff of Darvin 11.9 Plt Count 344 MPV 10.0 Immature Gran % (Auto) 0.600 Neut % (Auto) 73.7 H Lymph % (Auto) 17.6 L Calhoun % (Auto) 7.5 Eos % (Auto) 0.2 Baso % (Auto) 0.4 Absolute Neuts (auto) 11.8 H Absolute Lymphs (auto) 2.83 Nucleated RBC % 0 Sodium 140 Potassium 3.9 Chloride 109 H Carbon Dioxide 24.0 Anion Gap 7 BUN 6 L Creatinine 0.95 Estim Creat Clear Calc 127.70 Est GFR (MDRD) Af Amer 125 Est GFR (MDRD) Non-Af 103 BUN/Creatinine Ratio 6.3 L Glucose 122 H Calcium 9.6 Urine Opiates Screen NEGATIVE Urine Methadone Screen NEGATIVE Ur Barbiturates Screen NEGATIVE Ur Phencyclidine Scrn NEGATIVE Ur Amphetamines Screen NEGATIVE MDMA (Ecstasy) Screen POSITIVE H U Benzodiazepines Scrn NEGATIVE Urine Cocaine Screen NEGATIVE U Cannabinoids Screen POSITIVE H Ur Drug Screen Comment Ethyl Alcohol < 3.0 Discharge Plan Triage Chief Complaint: Mental Health ED Midlevel Provider: Ariana Stinson ED Provider: Ainsley Baltazar Dx/Rx/DC Orders Clinical Impression: Acute psychosis, Substance abuse, Paranoid schizophrenia Prescriptions: No Action aripiprazole 20 mg tablet 1 tab PO DAILY Patient Comments: take 1 tablet by mouth once daily divalproex 500 mg tablet extended release 24 hr 500 tab PO BID olanzapine 5 mg tablet 5 mg PO DAILY Primary Care Provider: Pal Menon Referrals: Pal Menon MD [Primary Care Provider] - Disposition Disposition: Psychiatric Hospital or Unit
[2024-01-09 19:39] VITALS: RESP 18
--- NOTE | 2024-01-09 19:40 | ED.RN ---
PT TOUCHING GENITALS AT THIS TIME, PT TOLD BY STAFF THAT TOUCHING HIMSELF IS HIGHLY INAPPROPRIATE AT THAT BEHAVIOR WILL NOT BE TOLERATED. PT TOLD THAT THERE ARE CHILDREN PRESENT IN ED AND PT NEEDS TO REFRAIN FROM TOUCHING HIMSELF. PT APOLOGIZES
[2024-01-09 19:44] LABS: Absolute Lymphocyte Count 2.83 X10^3/uL (0.83-4.51); Absolute Neutrophil Count 11.8 X10^3/uL (2.0-7.7); Basophil# 0.06 X10^3/uL; Basophil% 0.4 % (0-1); Eosinophil# 0.03 X10^3/uL; Eosinophils% 0.2 % (0-5); Hematocrit 40.7 % (40-54); Hemoglobin 14.6 g/dL (13.0-16.5); Lymphocyte # 2.83 X10^3/ul (0.83-4.51); Lymphocyte % 17.6 % (19-41); Mean Corp Hgb Conc 35.9 g/dL (32-36); Mean Corpuscular Hgb 32.2 pg (27.0-32.0); Mean Corpuscular Volume 89.8 fL (80-94); Monocyte% 7.5 % (0-10); NRBC Flagged by Analyzer 0 % (0-5); Neutrophil # 11.84 X10^3/uL (2.7-7.7); Neutrophil % 73.7 % (47-70); Platelet Count 344 K/mm3 (150-450); RBC Distribution Width CV 11.9 % (11.6-14.6); RBC Distribution Width SD 38.9 fl (35.1-43.9); Red Blood Count 4.53 M/mm3 (4.6-6.2); White Blood Count 16.1 K/mm3 (4.4-11.0)
[2024-01-09 19:55] LABS: Alcohol, Blood (Medical)-Serum < 3.0 mg/dL
[2024-01-09 19:58] LABS: Anion Gap 7 (5-15); BUN 6 mg/dL (7-18); BUN/Creat Ratio 6.3 RATIO (10-20); Calcium,Total 9.6 mg/dL (8.5-10.1); Chloride 109 mmol/L (98-107); Creatinine, Serum 0.95 mg/dL (0.70-1.30); EST Glomerular Filtration Rate 103 mL/min (>60); Est Glom Filt Rate - Afr Amer 125 mL/min (>60); Glucose 122 mg/dL (74-106); Potassium 3.9 mmol/L (3.5-5.1); Sodium Level 140 mmol/L (136-145)
[2024-01-09 20:00] LABS: Amphetamine Urine VISTA NEGATIVE (<1000 ng/mL); Barbiturate Urine VISTA NEGATIVE (< 200 ng/mL); Benzodiazepine Urine VISTA NEGATIVE (< 200 ng/mL); Cocaine Urine VISTA NEGATIVE (< 300 ng/mL); Ecstacy Urine VISTA POSITIVE (< 500 ng/mL); Methadone Urine VISTA NEGATIVE (< 300 ng/mL); PCP Urine VISTA NEGATIVE (< 25 ng/mL); THC Urine VISTA POSITIVE (< 50 ng/mL); Vista UDS pH Range 6
--- NOTE | 2024-01-09 20:50 | ED.RN ---
pt agitated and yelling at this time. pt continues yelling and spitting. ativan to be given per order on DEC. sitter at bedside
[2024-01-09] MEDS: LORazepam 1 MG Tablet PO ×2 (21:04→23:50)
[2024-01-09 21:13] VITALS: RESP 18
[2024-01-09 22:00] VITALS: RESP 18
--- NOTE | 2024-01-09 22:30 | ED.RN ---
pt continues to yell and become agitated. pt easily redirectable. pt states he would like further medications to help him calm down. Dr. Baltazar notifed and new order for 10 mg Haldol IM received. sitter at bedside
[2024-01-09] MEDS: Haloperidol Lactate 5 MG/ML Vial 10 MG IM (22:33)
--- NOTE | 2024-01-09 22:40 | ED.RN ---
pt accepted to [facility]. updated pink slip to be faxed and eta to be called when obtained. nurse to nurse report given to mila tomlinson. pts parents called and updated on status of pt and placement.
[2024-01-09 23:00] VITALS: BP 124/85; PULSE 95; RESP 18; O2SAT 98
--- NOTE | 2024-01-09 23:24 | ED.RN ---
[facility] accepting doctor: Dr. Fernandez, to be admitted to the discovery unit room tbd.
--- NOTE | 2024-01-09 23:50 | ED.RN ---
patient scream, swearing, grabbing his privates, exposing self. Ativan 1mg PO given. Sitter at bedside.
[2024-01-10] VITALS (9 sets, daily range): BP systolic 120–124; BP diastolic 60–80; PULSE 82–85; RESP 16–18; TEMP 37.1; O2SAT 96–100
[2024-01-10] MEDS: Ziprasidone IM 20 MG/ML VIAL IM (00:02)
--- NOTE | 2024-01-10 00:05 | ED.RN ---
Pt again became irritated, screaming, thrashing. Deescalation attempted but unsuccessful. Pt was not redirectable. HRO at bedside. Pt not complying or following commands. Meds given per DEC. Sitter remains at bedside.
== END 2024-01-10 09:40 ==
PROVIDERS: Physician Assistant; Emergency Provider Emergency Medicine; PCP Pediatrics; Visit Provider Emergency Medicine
DX: F23 Brief psychotic disorder (principal); F20.0 Paranoid schizophrenia; F31.9 Bipolar disorder, unspecified; F17.210 Nicotine dependence, cigarettes, uncomplicated; Z79.899 Other long term (current) drug therapy
CPT/HCPCS: 80048; 80307; 80320; 85025; 96372; 99285; G0480; J3486